=== PATIENT | female | born 1935 | race Caucasian/White ===

== ENCOUNTER → 2017-07-24 15:27 | Outpatient (CLI) | payer MEDICARE, SELFPAY ==
[2017-07-24 16:34] LABS: Absolute Lymphocyte Count 1.34 X10^3/ul (0.83-4.51); Absolute Neutrophil Count 3.1 X10^3/uL (2.0-7.7); Basophil# 0.01 X10^3/uL; Basophil% 0.2 % (0-1); Hematocrit 37.3 % (37-47); Hemoglobin 12.5 g/dl (12.0-15.0); Lymphocyte # 1.34 X10^3/ul (4.0); Lymphocyte % 27.2 % (19-41); Mean Corp Hgb Conc 33.5 g/gl (32-36); Mean Corpuscular Hgb 33.9 pg (27.0-32.0); Mean Corpuscular Volume 101.1 fL (81-99); Mean Platelet Vol. 10.7 fl (6.2-12.0); Monocyte% 8.1 % (0-10); Neutrophil # 3.08 X10^3/uL (2.7-7.7); Neutrophil % 62.5 % (47-70); Platelet Count 263 K/mm3 (150-450); RBC Distribution Width CV 14.2 % (11.6-14.6); RBC Distribution Width SD 51.2 fl (35.1-43.9); Red Blood Count 3.69 M/mm3 (4.2-5.4); White Blood Count 4.9 K/mm3 (4.4-11.0)
[2017-07-24 16:36] LABS: ALB/GLOB Ratio 1.3 RATIO (0.9-2.4); AST(SGOT) 23 U/L (15-37); Alanine Aminotransfer ALT/SGPT 24 U/L (13-56); Albumin, Serum 3.6 g/dL (3.2-5.0); Alkaline Phosphatase 80 U/L (45-117); Anion Gap 7 (5-15); BUN 22 mg/dL (7-18); BUN/Creat Ratio 24.2 RATIO (10-20); Calcium,Total 8.7 mg/dL (8.5-10.1); Chloride 108 mmol/L (98-107); Creatinine, Serum 0.91 mg/dL (0.55-1.02); EST Glomerular Filtration Rate 63 mL/min (>60); Est Glom Filt Rate - Afr Amer 76 mL/min (>60); Globulin 2.8 g/dL (2.2-4.2); Glucose 92 mg/dL (74-106); Potassium 4.1 mmol/L (3.5-5.1); Protein, Total 6.4 g/dL (6.4-8.2); Sodium Level 143 mmol/L (136-145)
[2017-07-24 16:41] LABS: POSITIVE COUNT NO; POSITIVE DIFFERENTIAL NO; POSITIVE MORPHOLOGY NO
== END ==
PROVIDERS: Family Provider Internal Medicine; PCP Internal Medicine; Visit Provider Internal Medicine Rheumatology
DX: M06.4 Inflammatory polyarthropathy (principal); M35.00 Sjogren syndrome, unspecified; M18.0 Bilateral primary osteoarthritis of first carpometacarpal joints; M16.0 Bilateral primary osteoarthritis of hip; Z79.899 Other long term (current) drug therapy
CPT/HCPCS: 36415; 80053; 85025

== ENCOUNTER → 2017-09-06 11:04 | Outpatient (CLI) | payer MEDICARE, SELFPAY ==
[2017-09-06 13:02] LABS: ALB/GLOB Ratio 1.3 RATIO (0.9-2.4); AST(SGOT) 26 U/L (15-37); Alanine Aminotransfer ALT/SGPT 25 U/L (13-56); Albumin, Serum 3.7 g/dL (3.2-5.0); Alkaline Phosphatase 73 U/L (45-117); Anion Gap 7 (5-15); BUN 22 mg/dL (7-18); BUN/Creat Ratio 25.3 RATIO (10-20); Calcium,Total 8.5 mg/dL (8.5-10.1); Chloride 107 mmol/L (98-107); Creatinine, Serum 0.87 mg/dL (0.55-1.02); EST Glomerular Filtration Rate 66 mL/min (>60); Est Glom Filt Rate - Afr Amer 80 mL/min (>60); Globulin 2.8 g/dL (2.2-4.2); Glucose 80 mg/dL (74-106); Protein, Total 6.5 g/dL (6.4-8.2); Sodium Level 141 mmol/L (136-145); Thyroid Stim Hormone (TSH) 2.94 uIU/mL (0.358-3.74)
== END ==
PROVIDERS: Family Provider Internal Medicine; PCP Internal Medicine; Visit Provider Internal Medicine Endocrinology, Diabetes & Metabolism
DX: E03.8 Other specified hypothyroidism (principal)
CPT/HCPCS: 36415; 80053; 84443

== ENCOUNTER → 2017-10-16 10:52 | Outpatient (CLI) | payer MEDICARE, SELFPAY ==
--- NOTE | 2017-10-16 10:52 | DT_ITS ---
This patient was seen during an EMR downtime October 15, 2017 - October 22, 2017. This patient may have a combination of paper and electronic documentation or all paper documentation. All documentation is viewable within the e-chart portion of [place] for each patient visit.
[2017-10-22 17:26] LABS: ALB/GLOB Ratio 1.2 RATIO (0.9-2.4); AST(SGOT) 27 U/L (15-37); Alanine Aminotransfer ALT/SGPT 21 U/L (13-56); Albumin, Serum 3.6 g/dL (3.2-5.0); Alkaline Phosphatase 80 U/L (45-117); BUN 20 mg/dL (7-18); Calcium,Total 8.9 mg/dL (8.5-10.1); Chloride 108 mmol/L (98-107); Creatinine, Serum 0.91 mg/dL (0.55-1.02); EST Glomerular Filtration Rate 63 mL/min (>60); Est Glom Filt Rate - Afr Amer 76 mL/min (>60); Glucose 83 mg/dL (74-106); Potassium 4.4 mmol/L (3.5-5.1); Protein, Total 6.6 g/dL (6.4-8.2); Sodium Level 140 mmol/L (136-145)
[2017-10-22 17:27] LABS: Anion Gap 4 (5-15)
[2017-10-22 17:33] LABS: Hematocrit 37.1 % (37-47); Hemoglobin 12.4 g/dl (12.0-15.0); Mean Corp Hgb Conc 33.4 g/gl (32-36); Mean Corpuscular Hgb 34.1 pg (27.0-32.0); Mean Corpuscular Volume 101.9 fL (81-99); RBC Distribution Width CV 13.7 % (11.6-14.6); Red Blood Count 3.64 M/mm3 (4.2-5.4); White Blood Count 4.9 K/mm3 (4.4-11.0)
[2017-10-22 17:34] LABS: Absolute Lymphocyte Count 1.27 X10^3/ul (0.83-4.51); Basophil# 0.02 X10^3/uL; Basophil% 0.4 % (0-1); Eosinophil# 0.16 X10^3/uL; Eosinophils% 3.2 % (0-5); Lymphocyte # 1.27 X10^3/ul (4.0); Lymphocyte % 25.7 % (19-41); Mean Platelet Vol. 10.8 fl (6.2-12.0); Monocyte# 0.45 X10^3/uL; Monocyte% 9.1 % (0-10); Neutrophil # 3.04 X10^3/uL (2.7-7.7); Neutrophil % 61.6 % (47-70); POSITIVE COUNT NO; POSITIVE DIFFERENTIAL NO; POSITIVE MORPHOLOGY NO; Platelet Count 271 K/mm3 (150-450); RBC Distribution Width SD 48.9 fl (35.1-43.9)
== END ==
PROVIDERS: Family Provider Internal Medicine; PCP Internal Medicine; Visit Provider Internal Medicine Rheumatology
DX: M06.4 Inflammatory polyarthropathy (principal); M35.00 Sjogren syndrome, unspecified; M18.0 Bilateral primary osteoarthritis of first carpometacarpal joints; M16.0 Bilateral primary osteoarthritis of hip; L30.9 Dermatitis, unspecified; M81.0 Age-related osteoporosis without current pathological fracture; H35.30 Unspecified macular degeneration; I10 Essential (primary) hypertension; K57.90 Diverticulosis of intestine, part unspecified, without perforation or abscess without bleeding; I87.2 Venous insufficiency (chronic) (peripheral); Z79.899 Other long term (current) drug therapy
CPT/HCPCS: 36415; 80053; 85025

== ENCOUNTER → 2017-12-10 10:37 | Outpatient (CLI) | payer MEDICARE, SELFPAY ==
[2017-12-10 11:36] LABS: Vitamin B12 527 pg/mL (211-911)
== END ==
PROVIDERS: Family Provider Internal Medicine; PCP Internal Medicine; Visit Provider Internal Medicine
DX: R71.8 Other abnormality of red blood cells (principal)
CPT/HCPCS: 36415; 82607

== ENCOUNTER → 2018-01-12 10:33 | Outpatient (CLI) | payer MEDICARE, SELFPAY ==
[2018-01-12 11:22] LABS: Absolute Lymphocyte Count 1.32 X10^3/ul (0.83-4.51); Absolute Neutrophil Count 3.2 X10^3/uL (2.0-7.7); Basophil# 0.02 X10^3/uL; Basophil% 0.4 % (0-1); Eosinophil# 0.12 X10^3/uL; Eosinophils% 2.4 % (0-5); Hematocrit 34.2 % (37-47); Hemoglobin 11.8 g/dl (12.0-15.0); Lymphocyte # 1.32 X10^3/ul (4.0); Lymphocyte % 26.1 % (19-41); Mean Corp Hgb Conc 34.5 g/gl (32-36); Mean Corpuscular Hgb 34.7 pg (27.0-32.0); Mean Corpuscular Volume 100.6 fL (81-99); Mean Platelet Vol. 10.5 fl (6.2-12.0); Monocyte# 0.35 X10^3/uL; Monocyte% 6.9 % (0-10); Neutrophil # 3.24 X10^3/uL (2.7-7.7); Platelet Count 231 K/mm3 (150-450); RBC Distribution Width CV 13.6 % (11.6-14.6); RBC Distribution Width SD 48.3 fl (35.1-43.9); White Blood Count 5.1 K/mm3 (4.4-11.0)
[2018-01-12 11:23] LABS: POSITIVE COUNT NO; POSITIVE DIFFERENTIAL NO; POSITIVE MORPHOLOGY NO
[2018-01-12 11:47] LABS: ALB/GLOB Ratio 1.2 RATIO (0.9-2.4); AST(SGOT) 29 U/L (15-37); Alanine Aminotransfer ALT/SGPT 27 U/L (13-56); Albumin, Serum 3.4 g/dL (3.2-5.0); Alkaline Phosphatase 71 U/L (45-117); Anion Gap 7 (5-15); BUN 25 mg/dL (7-18); BUN/Creat Ratio 27.4 RATIO (10-20); Calcium,Total 8.6 mg/dL (8.5-10.1); Chloride 107 mmol/L (98-107); Creatinine, Serum 0.91 mg/dL (0.55-1.02); EST Glomerular Filtration Rate 62 mL/min (>60); Est Glom Filt Rate - Afr Amer 76 mL/min (>60); Globulin 2.8 g/dL (2.2-4.2); Glucose 90 mg/dL (74-106); Potassium 4.1 mmol/L (3.5-5.1); Protein, Total 6.2 g/dL (6.4-8.2); Sodium Level 142 mmol/L (136-145)
== END ==
PROVIDERS: Family Provider Internal Medicine; PCP Internal Medicine; Visit Provider Internal Medicine Rheumatology
DX: M06.4 Inflammatory polyarthropathy (principal); M35.00 Sjogren syndrome, unspecified; M18.0 Bilateral primary osteoarthritis of first carpometacarpal joints; M16.0 Bilateral primary osteoarthritis of hip; Z79.899 Other long term (current) drug therapy
CPT/HCPCS: 36415; 80053; 85025

== ENCOUNTER → 2018-03-22 10:30 | Outpatient (CLI) | payer MEDICARE, SELFPAY ==
[2018-03-22 11:34] LABS: Vitamin D,25 Hydroxy 42.5 ng/mL (29.95-100.01)
[2018-03-22 11:38] LABS: ALB/GLOB Ratio 1.2 RATIO (0.9-2.4); AST(SGOT) 37 U/L (15-37); Alanine Aminotransfer ALT/SGPT 42 U/L (13-56); Albumin, Serum 3.7 g/dL (3.2-5.0); Alkaline Phosphatase 71 U/L (45-117); Anion Gap 4 (5-15); BUN 22 mg/dL (7-18); BUN/Creat Ratio 24.6 RATIO (10-20); Calcium,Total 8.8 mg/dL (8.5-10.1); Chloride 106 mmol/L (98-107); EST Glomerular Filtration Rate 64 mL/min (>60); Est Glom Filt Rate - Afr Amer 77 mL/min (>60); Globulin 3.2 g/dL (2.2-4.2); Glucose 80 mg/dL (74-106); Potassium 4.4 mmol/L (3.5-5.1); Protein, Total 6.9 g/dL (6.4-8.2); Sodium Level 139 mmol/L (136-145); Thyroid Stim Hormone (TSH) 3.88 uIU/mL (0.358-3.74)
== END ==
PROVIDERS: Family Provider Internal Medicine; PCP Internal Medicine; Referring Provider Internal Medicine Endocrinology, Diabetes & Metabolism; Visit Provider Internal Medicine Endocrinology, Diabetes & Metabolism
DX: E03.8 Other specified hypothyroidism (principal); E55.9 Vitamin D deficiency, unspecified
CPT/HCPCS: 36415; 80053; 82306; 84443

== ENCOUNTER → 2018-04-11 15:03 | Outpatient (CLI) | payer MEDICARE, SELFPAY ==
--- OUTSIDE RECORDS SUMMARY | 2018-06-06 20:44 | XMS RPT_ITS ---
:1935 Author Organization [facility] Support Name Relationship Address Phone KEVEN VELAZQUEZ Unavailable [address] + [place] [id number] R Unavailable Unavailable Unavailable WALKER, JOSELYN Unavailable [address] + [place] [address] KEVEN VELAZQUEZ Unavailable [address] + [place] [address] R Unavailable Unavailable Unavailable WALKER, JOSELYN Unavailable [address] + [place] [address] KEVEN VELAZQUEZ Unavailable [address] + [place] [address] R Unavailable Unavailable Unavailable WALKER, JOSELYN Unavailable [address] + [place] [address] KEVEN VELAZQUEZ Unavailable [address] + [place] [address] R Unavailable Unavailable Unavailable WALKER, JOSELYN Unavailable [address] + [place] [address] KEVEN VELAZQUEZ Unavailable [address] + [place] [address] R Unavailable Unavailable Unavailable WALKER, JOSELYN Unavailable [address] + [place] [address] KEVEN VELAZQUEZ Unavailable [address] + [place] [address] R Unavailable Unavailable Unavailable WALKER, JOSELYN Unavailable [address] + [place] [address] KEVEN VELAZQUEZ Unavailable [address] + [place] [address] R Unavailable Unavailable Unavailable WALKER, JOSELYN Unavailable [address] + [place] [id number] KEVEN VELAZQUEZ Unavailable [address] + [place] [address] R Unavailable Unavailable Unavailable WALKER, JOSELYN Unavailable [address] + [place] [address] KEVEN VELAZQUEZ Unavailable [address] + [place] [address] R Unavailable Unavailable Unavailable WALKER, JOSELYN Unavailable [address] + [place] [address] Care Team Providers Name Role Phone GANTA, NINA Attending Unavailable GANTA, NINA Referring Unavailable GANTA, NINA Attending Unavailable GANTA, NINA Referring Unavailable Ganta, Nina Attending Unavailable Ganta, Nina Primary Care Unavailable Vellanki, Ashleigh Attending Unavailable Ganta, Nina Primary Care Unavailable Korableva, Selam Attending Unavailable Korableva, Selam Referring Unavailable Ganta, Nina Primary Care Unavailable Vellanki, Ashleigh Attending Unavailable Vellanki, Ashleigh Referring Unavailable Ganta, Nina Primary Care Unavailable Ganta, Nina Attending Unavailable Ganta, Nina Referring Unavailable Ganta, Nina Primary Care Unavailable Vellanki, Ashleigh Attending Unavailable Vellanki, Ashleigh Referring Unavailable Ganta, Nina Primary Care Unavailable Korableva, Selam Attending Unavailable Korableva, Selam Referring Unavailable Ganta, Nina Primary Care Unavailable Korableva, Selam Attending Unavailable Korableva, Selam Referring Unavailable Ganta, Nina Primary Care Unavailable Vellanki, Ashleigh Attending Unavailable Vellanki, Ashleigh Referring Unavailable Ganta, Nina Primary Care Unavailable PROBLEMS PROBLEMS DATE TYPE CONDITION / CODE ATTENDING STATUS SOURCE 04/11/2018 Unknown E03.8 - Other Korableva, Active [facility] specified [facility] hypothyroidism / Hospital E03.8(ICD-10) Repository 03/22/2018 Unknown E55.9 - Vitamin D Korableva, Active [facility] deficiency, [facility] unspecified / Hospital E55.9(ICD-10) Repository 01/12/2018 Unknown M06.4 - Inflammatory Vellanki, 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 / Community M06.4(ICD-10) Hospital Repository 01/12/2018 Unknown Z79.899 - Other long Vellanjarod, Ashleigh Active [place] term (current) drug Community therapy / Hospital Z79.899(ICD-10) Repository 12/10/2017 Unknown R71.8 - Other Ganta, Nina Active [place] abnormality of red Community blood cells / Hospital R71.8(ICD-10) Repository 12/10/2017 Active Unknown / [facility] [place] Repository PROCEDURES PROCEDURES No Procedure Records FoundRESULTS RESULTS CBC W/DIFF, AUTOMATED Collected: 04/16/2018 Status: F Source: [place] 11:06 AM [facility] REPOSITORY TYPE CODE TESTS RESULT OUT OF RANGE REFERENCE UNITS LAB L100.1000 4.4-11.0 K/mm3 Normal WBC 5.2 LAB L100.1200 4.2-5.4 M/mm3 Low RBC 3.83 LAB L100.1300 12.0-15.0 g/dl Normal HGB 12.7 LAB L100.1400 37-47 % Normal HCT 38.6 LAB L100.1500 81-99 fL High MCV 100.8 LAB L100.1600 27.0-32.0 pg High MCH 33.2 LAB L100.1700 32-36 g/gl Normal MCHC 32.9 LAB L100.1810 11.6-14.6 % Normal RDW CV 14.2 LAB L100.1820 35.1-43.9 fl High RDW SD 51.3 LAB L100.1900 150-450 K/mm3 Normal PLT 279 LAB L100.2000 6.2-12.0 fl Normal MPV 10.4 LAB L100.2100 47-70 % Normal NEUT% 67.8 LAB L100.2200 19-41 % Normal LY% 21.8 LAB L100.2300 0-10 % Normal MONO% 8.7 LAB L100.2400 0-5 % Normal EO% 1.3 LAB L100.2500 0-1 % Normal BASO% 0.2 LAB L100.2550 0.0-0.9 % Normal IM GRAN % 0.200 Result Comment: IG% - Immature Granulocytes (promyelocytes, myelocytes and metamyelocytes) > 1% indicates that a LEFT SHIFT is Present. LAB L100.2620 2.0-7.7 X10 3/uL Normal Absolute Neut 3.5 LAB L100.2720 0.83-4.51 X10 3/ul Normal Absolute Lymph 1.13 Performed By: #### L100.0100 #### [facility] [address] [place], [address] THYROID STIM HORMONE Collected: 04/11/2018 Status: F Source: [place] (TSH) 3:11 PM [facility] REPOSITORY TYPE CODE TESTS RESULT OUT OF RANGE REFERENCE UNITS LAB L501.9520 0.358-3.74 uIU/mL Normal TSH 2.00 Performed By: #### L501.9520 #### [facility] [address] [facility] [place], [address] VITAMIN D,25 HYDROXY Collected: 03/22/2018 Status: F Source: [place] 10:34 AM [facility] REPOSITORY TYPE CODE TESTS RESULT OUT OF RANGE REFERENCE UNITS LAB L506.1000 29.95-100.01 ng/mL Normal Vitamin D 42.5 25-OH Result Comment: Vitamin D 25(OH) Status Range Deficiency <20 ng/mL (50nmol/L) Insuffciency 20 - 30 ng/mL (50 - 75 nmol/L) Sufficiency 30 - 100 ng/mL (75 - 250 nmol/L) Toxicity >100 ng/mL (>250 nmol/L) Performed By: #### L506.1000 #### [facility] [facility] [place], [address] COMPREHENSIVE METABOLIC Collected: 03/22/2018 Status: F Source: [place] PROFIL 10:34 AM [facility] REPOSITORY TYPE CODE TESTS RESULT OUT OF RANGE REFERENCE UNITS LAB L501.0100 74-106 mg/dL Normal GLU 80 Result Comment: Please note revised GLUCOSE reference range effective 2017. LAB L501.1000 7-18 mg/dL High BUN 22 LAB L501.1100 0.55-1.02 mg/dL Normal CREAT,SERUM 0.90 Result Comment: The validity of the calculated GFR AND GFRAA in patients over 70 years has not been determined. Clinical correlation is essential. LAB L501.1110 >60 mL/min Normal EST GFR 64 Result Comment: Non- GFR Calc LAB L501.1115 >60 mL/min Normal EST GFR - AA 77 Result Comment: GFR Calc LAB L501.1300 10-20 RATIO High BUN/CRE 24.6 LAB L501.1500 6.4-8.2 g/dL T Normal PROT 6.9 LAB L501.1800 3.2-5.0 g/dL Normal ALB 3.7 LAB L501.1950 2.2-4.2 g/dL Normal GLOB 3.2 LAB L501.2000 0.9-2.4 RATIO Normal A/G 1.2 LAB L501.2200 8.5-10.1 mg/dL CA Normal 8.8 LAB L501.4100 15-37 U/L Normal AST 37 LAB L501.4305 45-117 U/L Normal ALK P 71 LAB L501.4405 13-56 U/L Normal ALT 42 LAB L501.4600 0.20-1.00 mg/dL T Normal BILI 0.50 LAB L501.5300 136-145 mmol/L NA Normal 139 LAB L501.5600 3.5-5.1 mmol/L K Normal 4.4 LAB L501.5900 98-107 mmol/L CL Normal 106 LAB L501.6100 21.0-32.0 mmol/L Normal CO2 29.0 LAB L501.6200 5-15 Low GAP 4 Performed By: #### L500.4050, L501.9520 #### [facility] [address] [place], [place], [id number] THYROID STIM HORMONE Collected: 03/22/2018 Status: F Source: [place] (TSH) 10:34 AM [facility] REPOSITORY TYPE CODE TESTS RESULT OUT OF RANGE REFERENCE UNITS LAB L501.9520 0.358-3.74 uIU/mL High TSH 3.88 Performed By: #### L500.4050, L501.9520 #### [facility] [address] [place], [address] CBC W/DIFF, AUTOMATED Collected: 01/12/2018 Status: F Source: [place] 10:38 AM [facility] REPOSITORY TYPE CODE TESTS RESULT OUT OF RANGE REFERENCE UNITS LAB L100.1000 4.4-11.0 K/mm3 Normal WBC 5.1 LAB L100.1200 4.2-5.4 M/mm3 Low RBC 3.40 LAB L100.1300 12.0-15.0 g/dl Low HGB 11.8 LAB L100.1400 37-47 % Low HCT 34.2 LAB L100.1500 81-99 fL High MCV 100.6 LAB L100.1600 27.0-32.0 pg High MCH 34.7 LAB L100.1700 32-36 g/gl Normal MCHC 34.5 LAB L100.1810 11.6-14.6 % Normal RDW CV 13.6 LAB L100.1820 35.1-43.9 fl High RDW SD 48.3 LAB L100.1900 150-450 K/mm3 Normal PLT 231 LAB L100.2000 6.2-12.0 fl Normal MPV 10.5 LAB L100.2100 47-70 % Normal NEUT% 64.0 LAB L100.2200 19-41 % Normal LY% 26.1 LAB L100.2300 0-10 % Normal MONO% 6.9 LAB L100.2400 0-5 % Normal EO% 2.4 LAB L100.2500 0-1 % Normal BASO% 0.4 LAB L100.2550 0.0-0.9 % Normal IM GRAN % 0.200 Result Comment: IG% - Immature Granulocytes (promyelocytes, myelocytes and metamyelocytes) > 1% indicates that a LEFT SHIFT is Present. LAB L100.2620 2.0-7.7 X10 3/uL Normal Absolute Neut 3.2 LAB L100.2720 0.83-4.51 X10 3/ul Normal Absolute Lymph 1.32 Performed By: #### L100.0100 #### [facility] [address] [facility] [place], [place], [address] COMPREHENSIVE METABOLIC Collected: 01/12/2018 Status: F Source: [facility] 10:38 AM [facility] REPOSITORY TYPE CODE TESTS RESULT OUT OF RANGE REFERENCE UNITS LAB L501.0100 74-106 mg/dL Normal GLU 90 Result Comment: Please note revised GLUCOSE reference range effective 2017. LAB L501.1000 7-18 mg/dL High BUN 25 LAB L501.1100 0.55-1.02 mg/dL Normal CREAT,SERUM 0.91 Result Comment: The validity of the calculated GFR AND GFRAA in patients over 70 years has not been determined. Clinical correlation is essential. LAB L501.1110 >60 mL/min Normal EST GFR 62 Result Comment: Non- GFR Calc LAB L501.1115 >60 mL/min Normal EST GFR - AA 76 Result Comment: GFR Calc LAB L501.1300 10-20 RATIO High BUN/CRE 27.4 LAB L501.1500 6.4-8.2 g/dL Low T PROT 6.2 LAB L501.1800 3.2-5.0 g/dL Normal ALB 3.4 LAB L501.1950 2.2-4.2 g/dL Normal GLOB 2.8 LAB L501.2000 0.9-2.4 RATIO Normal A/G 1.2 LAB L501.2200 8.5-10.1 mg/dL CA Normal 8.6 LAB L501.4100 15-37 U/L Normal AST 29 LAB L501.4305 45-117 U/L Normal ALK P 71 LAB L501.4405 13-56 U/L Normal ALT 27 LAB L501.4600 0.20-1.00 mg/dL T Normal BILI 0.30 LAB L501.5300 136-145 mmol/L NA Normal 142 LAB L501.5600 3.5-5.1 mmol/L K Normal 4.1 LAB L501.5900 98-107 mmol/L CL Normal 107 LAB L501.6100 21.0-32.0 mmol/L Normal CO2 28.0 LAB L501.6200 5-15 Normal GAP 7 Performed By: #### L500.4050 #### [facility] [address] [place], [address] VITAMIN B12 Collected: 12/10/2017 Status: F Source: [place] 10:42 AM [facility] REPOSITORY TYPE CODE TESTS RESULT OUT OF RANGE REFERENCE UNITS LAB L503.0105 211-911 pg/mL Normal Vitamin B12 527 Performed By: #### L503.0105 #### [facility] [address] [place], [address] PROGRESS Observed: 12/10/2017 Status: COMPLETED Source: [place] 10:01 AM [facility] REPOSITORY HNO ID: [id number] Author: Nina Turner Service: (none) Author Type: Physician Type: Progress Notes Filed: 12/10/2017 5:14 PM Note Text: Reason for Visit Patient presents with: F/U 6 months Maria Teresa Velazquez is a 82 year old female who presents here today for Above Complaints.. Health Maintenance DTAP,TDAP,TD(1 - Tdap) DIABETES SCREEN HPI Patient has a lesion on the right ring finger seems Like nodule that is red and tender. 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 Taking methotrexate and it is helping the stiffness of the hands. Usually stiffness is not more than half an hour. ? ?Essential hypertension ? BP is well controlled on current regimen of medicines which is tolerated well. No significant side effects ? ? Hypothyroidism Has hypothyroidism on the current medication she is doing well. Currently no signs of hypothyoidism. No constipation, depression , low energy or dryness of skin. ? ? Osteopenia Dr Hurst monitors her bone density. No problem-specific Assessment AND Plan notes found for this encounter. PAST MEDICAL HISTORY Diagnosis Date - Adhesive capsulitis of shoulder - Cervical spondylosis without myelopathy 04/17/2012 - Diverticulosis of colon (without mention of hemorrhage) - Dry skin 03/21/2010 - Generalized osteoarthrosis, unspecified site 08/21/2005 - Hair loss 03/21/2010 - Internal hemorrhoids without mention of complication - Leg swelling - Lower leg edema - Macular degeneration (senile) of retina, unspecified 08/21/2005 - Myalgia and myositis, unspecified - Open wound of scalp, without mention of complication - Osteopenia 02/03/2009 BMD with no significant change from previous. Vitamin D 02/19 - 42.4 - Sciatica 05/27/2007 - Unspecified essential hypertension PAST SURGICAL HISTORY Procedure Laterality Date - COLONOSCOP W/ OR W/O BRSH SPEC 11/21/05 - REPAIR ROTATOR CUFF,ACUTE 2004 right rotator cuff repair FAMILY HISTORY Problem Relation Age of Onset - Breast Cancer Sister - Alzheimer's Disease Mother - Aneurysm Father Cerebral, hs HTN - Lipids, Osteoporosis [Other] [OTHER] Sister - None Daughter - None Son - melanoma [Other] [OTHER] Sister Social History Substance Use Topics - Smoking status: Never Smoker - Smokeless tobacco: Never Used - Alcohol use Yes Comment: 2 TO 3 DRINKS WEEK Past medical history, appointments, medications, allergies reviewed. Pertinent Lab/Diagnostic Studies are reviewed and discussed today Current Outpatient Prescriptions: - amLODIPine (NORVASC) 2.5 mg tablet - irbesartan (AVAPRO) 150 mg tablet - citalopram (CELEXA) 20 mg tablet - folic acid 1 mg tablet - methotrexate 2.5 mg tablet - Cholecalciferol, Vitamin D3, (VITAMIN D-3) 2,000 unit cap - vit A,C,P-Gmhm-Gdgxnb (OCUVITE PRESERVISION) 7,160-113-100 igoo-sa-sdpe tab - Ibandronate (BONIVA) 150 mg tablet - levothyroxine (SYNTHROID) 50 mcg tablet - calcium carbonate 600 mg-cholecalciferol 200 units (CALCIUM 600 + D,3,) 600 mg(1,500mg) -200 unit ORAL Tab - [place]-3 Fatty Acids-Vitamin E (FISH OIL) 1,000 mg ORAL Cap - ALEVE 220 MG TAB Review of Systems CONSTITUTIONAL: No fevers, chills night sweats, unintended weight loss CARDIOVASCULAR: No chest pain, dyspnea, palpitations, orthopnea, PND, ankle edema. PULM: No dyspnea, unexplained cough. GI: No dysphagia/odynophagia, problematic reflux, constipation, diarrhea, changes in stool habits, hematochezia, melena. : No new urinary complaints, including dysuria, gross hematuria or pyuria. NEURO: No new balance problems, peripheral weakness/paresthesias or numbness of concern. Physical Exam BP 126/78 Pulse 61 Resp 14 Wt 53.1 kg (117 lb) SpO2 100% BMI 21.75 kg/m? General appearance: Well appearing, alert, in no acute distress, well nourished. Skin: Skin color, texture, turgor normal, no suspicious rashes or lesions Head: Normocephalic, no masses, lesions, tenderness or abnormalities Eyes: Anicteric sclera. Pupils are equally round and reactive to light. Extraocular movements are intact. Lungs: Lungs clear to auscultation. No wheezing, rhonchi, rales Heart: RRR without murmur, gallop, or rubs. Extremities: No deformities, edema, skin discoloration, clubbing or cyanosis. Good capillary refill. ASSESSMENT/PLAN: 1. Essential hypertension - ICD9: 401.9, ICD10: I10 (primary diagnosis) - good control - Recommended regular aerobic exercise. - Recommend home blood pressure monitoring, to bring results in on next visit - Goal of BP <130/80 2. Acquired hypothyroidism - ICD9: 244.9, ICD10: E03.9 - Instructed patient on importance of taking on an empty stomach either first thing in the morning or at bedtime. 3. Osteopenia, unspecified location - ICD9: 733.90, ICD10: M85.80 - Reviewed the need for Calcium and Vitamin D supplements and weight bearing exercise as tolerated 4. Elevated MCV - ICD9: 790.09, ICD10: R71.8 - VITAMIN B12 BLOOD 5. Finger infection - ICD9: 686.9, ICD10: L08.9 - Begin treatment with. - SULFAMETHOXAZOLE 400 MG-TRIMETHOPRIM 80 MG TABLET NINA TURNER MD CNOV Observed: 12/10/2017 Status: COMPLETED Source: [place] 9:40 AM [facility] REPOSITORY Office Visit (INTMWS) MARIA TERESA VELAZQUEZ ([id number]) 1935 F Date Time Provider Department 12/10/17 9:40 AM NINA TURNER INTPatWS During your visit today, we recorded the following information about you: Pulse Respiration Blood pressure Weight 61/minute 14/minute 126/78 53.1 kg NINA TURNER MD 12/10/2017 5:14 PM Signed Reason for Visit Patient presents with: F/U 6 months Maria Teresa Velazquez is a 82 year old female who presents here today for Above Complaints.. Health Maintenance DTAP,TDAP,TD(1 - Tdap) DIABETES SCREEN HPI Patient has a lesion on the right ring finger seems Like nodule that is red and tender. 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 Taking methotrexate and it is helping the stiffness of the hands. Usually stiffness is not more than half an hour. ? ?Essential hypertension ? BP is well controlled on current regimen of medicines which is tolerated well. No significant side effects ? ? Hypothyroidism Has hypothyroidism on the current medication she is doing well. Currently no signs of hypothyoidism. No constipation, depression , low energy or dryness of skin. ? ? Osteopenia Dr Hurst monitors her bone density. No problem-specific Assessment AND Plan notes found for this encounter. PAST MEDICAL HISTORY Diagnosis Date - Adhesive capsulitis of shoulder - Cervical spondylosis without myelopathy 04/17/2012 - Diverticulosis of colon (without mention of hemorrhage) - Dry skin 03/21/2010 - Generalized osteoarthrosis, unspecified site 08/21/2005 - Hair loss 03/21/2010 - Internal hemorrhoids without mention of complication - Leg swelling - Lower leg edema - Macular degeneration (senile) of retina, unspecified 08/21/2005 - Myalgia and myositis, unspecified - Open wound of scalp, without mention of complication - Osteopenia 02/03/2009 BMD with no significant change from previous. Vitamin D 02/19 - 42.4 - Sciatica 05/27/2007 - Unspecified essential hypertension PAST SURGICAL HISTORY Procedure Laterality Date - COLONOSCOP W/ OR W/O BRSH SPEC 11/21/05 - REPAIR ROTATOR CUFF,ACUTE 2004 right rotator cuff repair FAMILY HISTORY Problem Relation Age of Onset - Breast Cancer Sister - Alzheimer's Disease Mother - Aneurysm Father Cerebral, hs HTN - Lipids, Osteoporosis [Other] [OTHER] Sister - None Daughter - None Son - melanoma [Other] [OTHER] Sister Social History Substance Use Topics - Smoking status: Never Smoker - Smokeless tobacco: Never Used - Alcohol use Yes Comment: 2 TO 3 DRINKS WEEK Past medical history, appointments, medications, allergies reviewed. Pertinent Lab/Diagnostic Studies are reviewed and discussed today Current Outpatient Prescriptions: - amLODIPine (NORVASC) 2.5 mg tablet - irbesartan (AVAPRO) 150 mg tablet - citalopram (CELEXA) 20 mg tablet - folic acid 1 mg tablet - methotrexate 2.5 mg tablet - Cholecalciferol, Vitamin D3, (VITAMIN D-3) 2,000 unit cap - vit A,C,Q-Ckkj-Frwdyy (OCUVITE PRESERVISION) 7,160-113-100 daad-tv-aftg tab - Ibandronate (BONIVA) 150 mg tablet - levothyroxine (SYNTHROID) 50 mcg tablet - calcium carbonate 600 mg-cholecalciferol 200 units (CALCIUM 600 + D,3,) 600 mg(1,500mg) -200 unit ORAL Tab - [place]-3 Fatty Acids-Vitamin E (FISH OIL) 1,000 mg ORAL Cap - ALEVE 220 MG TAB Review of Systems CONSTITUTIONAL: No fevers, chills night sweats, unintended weight loss CARDIOVASCULAR: No chest pain, dyspnea, palpitations, orthopnea, PND, ankle edema. PULM: No dyspnea, unexplained cough. GI: No dysphagia/odynophagia, problematic reflux, constipation, diarrhea, changes in stool habits, hematochezia, melena. : No new urinary complaints, including dysuria, gross hematuria or pyuria. NEURO: No new balance problems, peripheral weakness/paresthesias or numbness of concern. Physical Exam BP 126/78 Pulse 61 Resp 14 Wt 53.1 kg (117 lb) SpO2 100% BMI 21.75 kg/m? General appearance: Well appearing, alert, in no acute distress, well nourished. Skin: Skin color, texture, turgor normal, no suspicious rashes or lesions Head: Normocephalic, no masses, lesions, tenderness or abnormalities Eyes: Anicteric sclera. Pupils are equally round and reactive to light. Extraocular movements are intact. Lungs: Lungs clear to auscultation. No wheezing, rhonchi, rales Heart: RRR without murmur, gallop, or rubs. Extremities: No deformities, edema, skin discoloration, clubbing or cyanosis. Good capillary refill. ASSESSMENT/PLAN: 1. Essential hypertension - ICD9: 401.9, ICD10: I10 (primary diagnosis) - good control - Recommended regular aerobic exercise. - Recommend home blood pressure monitoring, to bring results in on next visit - Goal of BP <130/80 2. Acquired hypothyroidism - ICD9: 244.9, ICD10: E03.9 - Instructed patient on importance of taking on an empty stomach either first thing in the morning or at bedtime. 3. Osteopenia, unspecified location - ICD9: 733.90, ICD10: M85.80 - Reviewed the need for Calcium and Vitamin D supplements and weight bearing exercise as tolerated 4. Elevated MCV - ICD9: 790.09, ICD10: R71.8 - VITAMIN B12 BLOOD 5. Finger infection - ICD9: 686.9, ICD10: L08.9 - Begin treatment with. - SULFAMETHOXAZOLE 400 MG-TRIMETHOPRIM 80 MG TABLET NINA TURNER MD Referring Provider: NINA TURNER [[id number]] Allergies As of Date: 12/10/2017 Noted Allergy Reaction environmental [Other] 03/20/2005 EPHEDRINE 03/20/2005 4 - Hives POISON AKASH 03/27/2005 SUDAFED (PSEUDOEPHEDRINE HCL) 03/20/2005 4 - Hives Date Reviewed: 12/10/2017 Reviewed by: Jamie Forrester Ma - Fully Assessed Reason for Visit: F/U 6 months [1177] Primary Visit Diagnosis:Essential hypertension [I10] Other Visit Diagnoses:Acquired hypothyroidism [E03.9] Osteopenia, unspecified location [M85.80] Elevated MCV [R71.8] Finger infection [L08.9] Order(s):VITAMIN B12 BLOOD [SQB12] Order #: [id number] FUTURE sulfamethoxazole-trimethoprim (BACTRIM,SEPTRA) 400- 80 mg per tabletTake 1 tablet by mouth twice daily for 7 days.Disp: 14 tabletRfl: 0 Prescriptions as of 12/10/2017 Sig: SULFAMETHOXAZOLE 400 MG-TRIME* Take 1 tablet by mouth twice * AMLODIPINE 2.5 MG TABLET Take 1 tablet by mouth once d* IRBESARTAN 150 MG TABLET Take 1 tablet by mouth daily * CITALOPRAM 20 MG TABLET TAKE 1/2 TABLET BY MOUTH ONCE* FOLIC ACID 1 MG TABLET Take 2 mg by mouth once daily. METHOTREXATE SODIUM 2.5 MG TA* Take 2.5 tablets by mouth noreen* CHOLECALCIFEROL (VITAMIN D3) * Take 2,000 Units by mouth onc* VITAMINS A,C,H-SSYG-MNOINF 7* Take 1 tablet by mouth twice * IBANDRONATE 150 MG TABLET Take 1 tablet by mouth once e* LEVOTHYROXINE 50 MCG TABLET Take 1 tablet by mouth once d* * CALCIUM CARBONATE 600 MG (1,5* Take 1 tablet by mouth once d* * OMEGA-3 FATTY ACIDS-VITAMIN E* Take 1 capsule by mouth once * * ALEVE 220 MG TABLET As needed Problem List As Of Date 12/10/2017 Noted Resolved DERMATITIS NOS [L25.9] INVALID FOR*08/21/2005 Essential hypertension [I10] INVALID FOR* More... MACULAR DEGENERATION NOS [H35.30] INVALID FOR* More... Primary osteoarthritis involving multiple joint*INVALID FOR* More... Hypothyroidism [E03.9] INVALID FOR* More... Osteopenia [M85.80] INVALID FOR* More... Hyperlipemia [E78.5] INVALID FOR*10/27/2013 More... Bursitis of left hip [M70.72] INVALID FOR*11/18/2014 Osteoarthritis [M19.90] INVALID FOR*10/21/2012 Multinodular goiter [E04.2] INVALID FOR* More... More... Hyperlipidemia [E78.5] INVALID FOR* Depressed [F32.9] INVALID FOR* More... Right leg pain [M79.604] INVALID FOR* Lumbar radiculopathy [M54.16] INVALID FOR* Rheumatoid arthritis with positive rheumatoid f*INVALID FOR* More... Prescriptions ordered this encounter Disp Refills Start End SULFAMETHOXAZOLE 400 MG-TRIMETHOPRIM* 14 t* 0 12/10/2017 12/17/2017 Route: ORAL Sig: Take 1 tablet by mouth twice daily for 7 days. Encounter Status:Closed by NINA TURNER MD on 12/10/17 DOWNTIME REPORT Observed: 11/01/2017 Status: F Source: [place] 12:26 PM [facility] REPOSITORY [facility] Medical Records Department [address] [place] [address] Downtime Report MR#: [id number] Acct: [id number] Name: MARIA TERESA VELAZQUEZ Rep #: [id number] : 1935 82 From: [place] Roy PCP: Nina Turner MD Status: REG CLI This patient was seen during an EMR downtime October 15, 2017 - October 22, 2017. This patient may have a combination of paper and electronic documentation or all paper documentation. All documentation is viewable within the e-chart portion of [facility] for each patient visit. COMPREHENSIVE METABOLIC Collected: 10/16/2017 Status: F Source: JANNIE PROFIL 12:00 AM [facility] REPOSITORY Order Comment: RESULT(S) PREVIOUSLY REPORTED ON MANUAL REQUISITION DURING DOWNTIME. TYPE CODE TESTS RESULT OUT OF RANGE REFERENCE UNITS LAB L501.0100 74-106 mg/dL Normal GLU 83 Result Comment: Please note revised GLUCOSE reference range effective 2017. LAB L501.1000 7-18 mg/dL High BUN 20 LAB L501.1100 0.55-1.02 mg/dL Normal CREAT,SERUM 0.91 Result Comment: The validity of the calculated GFR AND GFRAA in patients over 70 years has not been determined. Clinical correlation is essential. LAB L501.1110 >60 mL/min Normal EST GFR 63 LAB L501.1115 >60 mL/min Normal EST GFR - AA 76 LAB L501.1300 10-20 RATIO High BUN/CRE 22.0 LAB L501.1500 6.4-8.2 g/dL Normal T PROT 6.6 LAB L501.1800 3.2-5.0 g/dL Normal ALB 3.6 LAB L501.1950 2.2-4.2 g/dL Normal GLOB 3.0 LAB L501.2000 0.9-2.4 RATIO Normal A/G 1.2 LAB L501.2200 8.5-10.1 mg/dL Normal CA 8.9 LAB L501.4100 15-37 U/L Normal AST 27 LAB L501.4305 45-117 U/L Normal ALK P 80 LAB L501.4405 13-56 U/L Normal ALT 21 LAB L501.4600 0.20-1.00 mg/dL Normal T BILI 0.30 LAB L501.5300 136-145 mmol/L Normal NA 140 LAB L501.5600 3.5-5.1 mmol/L Normal K 4.4 LAB L501.5900 98-107 mmol/L High CL 108 LAB L501.6100 21.0-32.0 mmol/L Normal CO2 28.0 LAB L501.6200 5-15 Low GAP 4 Performed By: #### L500.4050 #### [facility] [address] [place], [address] CBC W/DIFF, AUTOMATED Collected: 10/16/2017 Status: F Source: [place] 12:00 AM [facility] REPOSITORY Order Comment: RESULT(S) PREVIOUSLY REPORTED ON MANUAL REQUISITION DURING DOWNTIME. TYPE CODE TESTS RESULT OUT OF RANGE REFERENCE UNITS LAB L100.1000 4.4-11.0 K/mm3 Normal WBC 4.9 LAB L100.1200 4.2-5.4 M/mm3 Low RBC 3.64 LAB L100.1300 12.0-15.0 g/dl Normal HGB 12.4 LAB L100.1400 37-47 % Normal HCT 37.1 LAB L100.1500 81-99 fL High MCV 101.9 LAB L100.1600 27.0-32.0 pg High MCH 34.1 LAB L100.1700 32-36 g/gl Normal MCHC 33.4 LAB L100.1810 11.6-14.6 % Normal RDW CV 13.7 LAB L100.1820 35.1-43.9 fl High RDW SD 48.9 LAB L100.1900 150-450 K/mm3 Normal PLT 271 LAB L100.2000 6.2-12.0 fl Normal MPV 10.8 LAB L100.2100 47-70 % Normal NEUT% 61.6 LAB L100.2200 19-41 % Normal LY% 25.7 LAB L100.2300 0-10 % Normal MONO% 9.1 LAB L100.2400 0-5 % Normal EO% 3.2 LAB L100.2500 0-1 % Normal BASO% 0.4 LAB L100.2550 0.0-0.9 % Normal IM GRAN % 0.000 Result Comment: IG% - Immature Granulocytes (promyelocytes, myelocytes and metamyelocytes) > 1% indicates that a LEFT SHIFT is Present. LAB L100.2620 2.0-7.7 X10 3/uL Normal Absolute Neut 3.0 LAB L100.2720 0.83-4.51 X10 3/ul Normal Absolute Lymph 1.27 Performed By: #### L100.0100 #### [facility] [address] [place] [address]. [place], [place], [address] COMPREHENSIVE METABOLIC Collected: 09/06/2017 Status: F Source: [facility] 11:08 AM [facility] REPOSITORY TYPE CODE TESTS RESULT OUT OF RANGE REFERENCE UNITS LAB L501.0100 74-106 mg/dL Normal GLU 80 Result Comment: Please note revised GLUCOSE reference range effective 2017. LAB L501.1000 7-18 mg/dL High BUN 22 LAB L501.1100 0.55-1.02 mg/dL Normal CREAT,SERUM 0.87 Result Comment: The validity of the calculated GFR AND GFRAA in patients over 70 years has not been determined. Clinical correlation is essential. LAB L501.1110 >60 mL/min Normal EST GFR 66 Result Comment: Non- GFR Calc LAB L501.1115 >60 mL/min Normal EST GFR - AA 80 Result Comment: GFR Calc LAB L501.1300 10-20 RATIO High BUN/CRE 25.3 LAB L501.1500 6.4-8.2 g/dL T Normal PROT 6.5 LAB L501.1800 3.2-5.0 g/dL Normal ALB 3.7 LAB L501.1950 2.2-4.2 g/dL Normal GLOB 2.8 LAB L501.2000 0.9-2.4 RATIO Normal A/G 1.3 LAB L501.2200 8.5-10.1 mg/dL CA Normal 8.5 LAB L501.4100 15-37 U/L Normal AST 26 LAB L501.4305 45-117 U/L Normal ALK P 73 LAB L501.4405 13-56 U/L Normal ALT 25 LAB L501.4600 0.20-1.00 mg/dL T Normal BILI 0.40 LAB L501.5300 136-145 mmol/L NA Normal 141 LAB L501.5600 3.5-5.1 mmol/L K Normal 4.0 LAB L501.5900 98-107 mmol/L CL Normal 107 LAB L501.6100 21.0-32.0 mmol/L Normal CO2 27.0 LAB L501.6200 5-15 Normal GAP 7 Performed By: #### L500.4050, L501.9520 #### [facility] [address] [place], [place], [address] THYROID STIM HORMONE Collected: 09/06/2017 Status: F Source: JANNIE (TSH) 11:08 AM [facility] REPOSITORY TYPE CODE TESTS RESULT OUT OF RANGE REFERENCE UNITS LAB L501.9520 0.358-3.74 uIU/mL Normal TSH 2.94 Performed By: #### L500.4050, L501.9520 #### [facility] [address] [place], [place], [address] COMPREHENSIVE METABOLIC Collected: 07/24/2017 Status: F Source: JANNIE PROFIL 3:36 PM [facility] REPOSITORY TYPE CODE TESTS RESULT OUT OF RANGE REFERENCE UNITS LAB L501.0100 74-106 mg/dL Normal GLU 92 Result Comment: Please note revised GLUCOSE reference range effective 2017. LAB L501.1000 7-18 mg/dL High BUN 22 LAB L501.1100 0.55-1.02 mg/dL Normal CREAT,SERUM 0.91 Result Comment: The validity of the calculated GFR AND GFRAA in patients over 70 years has not been determined. Clinical correlation is essential. LAB L501.1110 >60 mL/min Normal EST GFR 63 Result Comment: Non- GFR Calc LAB L501.1115 >60 mL/min Normal EST GFR - AA 76 Result Comment: GFR Calc LAB L501.1300 10-20 RATIO High BUN/CRE 24.2 LAB L501.1500 6.4-8.2 g/dL T Normal PROT 6.4 LAB L501.1800 3.2-5.0 g/dL Normal ALB 3.6 LAB L501.1950 2.2-4.2 g/dL Normal GLOB 2.8 LAB L501.2000 0.9-2.4 RATIO Normal A/G 1.3 LAB L501.2200 8.5-10.1 mg/dL CA Normal 8.7 LAB L501.4100 15-37 U/L Normal AST 23 LAB L501.4305 45-117 U/L Normal ALK P 80 LAB L501.4405 13-56 U/L Normal ALT 24 Result Comment: Please note revised ALT reference range effective 2017. LAB L501.4600 0.20-1.00 mg/dL Normal T BILI 0.30 LAB L501.5300 136-145 mmol/L Normal NA 143 LAB L501.5600 3.5-5.1 mmol/L Normal K 4.1 LAB L501.5900 98-107 mmol/L High CL 108 LAB L501.6100 21.0-32.0 mmol/L Normal CO2 28.0 LAB L501.6200 5-15 Normal GAP 7 Performed By: #### L500.4050 #### [facility] [address] [place], [address] CBC W/DIFF, AUTOMATED Collected: 07/24/2017 Status: F Source: JANNIE 3:36 PM [facility] REPOSITORY TYPE CODE TESTS RESULT OUT OF RANGE REFERENCE UNITS LAB L100.1000 4.4-11.0 K/mm3 Normal WBC 4.9 LAB L100.1200 4.2-5.4 M/mm3 Low RBC 3.69 LAB L100.1300 12.0-15.0 g/dl Normal HGB 12.5 LAB L100.1400 37-47 % Normal HCT 37.3 LAB L100.1500 81-99 fL High MCV 101.1 LAB L100.1600 27.0-32.0 pg High MCH 33.9 LAB L100.1700 32-36 g/gl Normal MCHC 33.5 LAB L100.1810 11.6-14.6 % Normal RDW CV 14.2 LAB L100.1820 35.1-43.9 fl High RDW SD 51.2 LAB L100.1900 150-450 K/mm3 Normal PLT 263 LAB L100.2000 6.2-12.0 fl Normal MPV 10.7 LAB L100.2100 47-70 % Normal NEUT% 62.5 LAB L100.2200 19-41 % Normal LY% 27.2 LAB L100.2300 0-10 % Normal MONO% 8.1 LAB L100.2400 0-5 % Normal EO% 2.0 LAB L100.2500 0-1 % Normal BASO% 0.2 LAB L100.2550 0.0-0.9 % Normal IM GRAN % 0.000 Result Comment: IG% - Immature Granulocytes (promyelocytes, myelocytes and metamyelocytes) > 1% indicates that a LEFT SHIFT is Present. LAB L100.2620 2.0-7.7 X10 3/uL Normal Absolute Neut 3.1 LAB L100.2720 0.83-4.51 X10 3/ul Normal Absolute Lymph 1.34 Performed By: #### L100.0100 #### [facility] [address] [place], [place] [address]ra[place], [address] PROGRESS Observed: 06/11/2017 Status: COMPLETED Source: [place] 10:52 AM [facility] REPOSITORY HNO ID: [id number] Author: Nina Turner Service: (none) Author Type: Physician Type: Progress Notes Filed: 06/11/2017 5:32 PM Note Text: Medicare Yearly Visit Medical B eligibilty date age 66 Date of last exam none in the past years PAST MEDICAL HISTORY Diagnosis Date - Adhesive capsulitis of shoulder - Cervical spondylosis without myelopathy 04/17/2012 - Diverticulosis of colon (without mention of hemorrhage) - Dry skin 03/21/2010 - Generalized osteoarthrosis, unspecified site 08/21/2005 - Hair loss 03/21/2010 - Internal hemorrhoids without mention of complication - Leg swelling - Lower leg edema - Macular degeneration (senile) of retina, unspecified 08/21/2005 - Myalgia and myositis, unspecified - Open wound of scalp, without mention of complication - Osteopenia 02/03/2009 BMD with no significant change from previous. Vitamin D 02/19 - 42.4 - Sciatica 05/27/2007 - Unspecified essential hypertension PAST SURGICAL HISTORY Procedure Laterality Date - COLONOSCOP W/ OR W/O [facility] SPEC 11/21/05 - REPAIR ROTATOR CUFF,ACUTE 2004 right rotator cuff repair Ephedrine; Poison Akash; Sudafed [Pseudoephedrine Hcl]; Environmental [Other] Medications reviewed: Yes FAMILY HISTORY Problem Relation Age of Onset - Breast Cancer Sister - Alzheimer's Disease Mother - Aneurysm Father Cerebral, hs HTN - Lipids, Osteoporosis [Other] [OTHER] Sister - None Daughter - None Son - melanoma [Other] [OTHER] Sister SOCIAL HISTORY: Social History Marital status: Spouse name: Keven Years of education: Number of children: 2 Occupational History Occupation Employer Comment RETIRED [employer] Social History Main Topics Smoking status: Never Smoker Smokeless status: Never Used Alcohol use: Yes Comment: 2 TO 3 DRINKS WEEK Drug use: No Maria Teresa likes to exercise by going to [place]. She watches her diet for sodium, low fat and low cholesterol most of the time. List of current specialists seen: End of Live Planning discussed including patients advanced directive wishes: Yes I am willing to follow Maria Teresa's advanced directives. Depression screen She in the past two weeks denies having felt down, depressed, hopeless or with little interest or pleasure in doing things. Functional Ability/Safety Screen 1. Was the patient's timed Up and Go test unsteady or longer than 30 seconds? No 2. Does the patient need help with the phone, transportation, shopping,preparing meals, housework, laundry, medications or managing money? No 3. Does your home have rugs in the hallway, lack of grab bars in the bathroom, lack of handrails on the stairs or have poor lighting? No Hearing Evaluation: normal PHYSICAL EXAM BP 134/66 (BP Site: Left Arm, BP Position: Sitting, BP Cuff Size: Regular Adult) Pulse 60 Resp 12 Ht 156.2 cm (5' 1.5) Wt 52.2 kg (115 lb) SpO2 98% BMI 21.38 kg/m2 Alert and oriented X 3: NO Body mass index is 21.38 kg/(m2). ASSESSMENT/PLAN: 82 year old female The following prevention plan was discussed during the office visit and provided to the patient: - Glaucoma screening - Lipid panel NINA TURNER MD Reason for Visit Patient presents with: Established Patient: medicare wellness Maria Teresa Velazquez is a 82 year old female who presents here today for Above Complaints.. Health Maintenance There are no preventive care reminders to display for this patient. 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 Usually stiffness is not more than half an hour. Essential hypertension BP is well controlled on current regimen of medicines which is tolerated well. No significant side effects Hypothyroidism Has hypothyroidism on the current medication she is doing well. Currently no signs of hypothyoidism. No constipation, depression , low energy or dryness of skin. Osteopenia Dr Hurst monitors her bone density. PAST MEDICAL HISTORY Diagnosis Date - Adhesive capsulitis of shoulder - Cervical spondylosis without myelopathy 04/17/2012 - Diverticulosis of colon (without mention of hemorrhage) - Dry skin 03/21/2010 - Generalized osteoarthrosis, unspecified site 08/21/2005 - Hair loss 03/21/2010 - Internal hemorrhoids without mention of complication - Leg swelling - Lower leg edema - Macular degeneration (senile) of retina, unspecified 08/21/2005 - Myalgia and myositis, unspecified - Open wound of scalp, without mention of complication - Osteopenia 02/03/2009 BMD with no significant change from previous. Vitamin D 02/19 - 42.4 - Sciatica 05/27/2007 - Unspecified essential hypertension PAST SURGICAL HISTORY Procedure Laterality Date - COLONOSCOP W/ OR W/O [facility] SPEC 11/21/05 - REPAIR ROTATOR CUFF,ACUTE 2004 right rotator cuff repair FAMILY HISTORY Problem Relation Age of Onset - Breast Cancer Sister - Alzheimer's Disease Mother - Aneurysm Father Cerebral, hs HTN - Lipids, Osteoporosis [Other] [OTHER] Sister - None Daughter - None Son - melanoma [Other] [OTHER] Sister Social History Substance Use Topics - Smoking status: Never Smoker - Smokeless tobacco: Never Used - Alcohol use Yes Comment: 2 TO 3 DRINKS WEEK Past medical history, appointments, medications, allergies reviewed. Pertinent Lab/Diagnostic Studies are reviewed and discussed today Current Outpatient Prescriptions: - citalopram (CELEXA) 20 mg tablet - irbesartan (AVAPRO) 150 mg tablet - folic acid 1 mg tablet - methotrexate 2.5 mg tablet - Cholecalciferol, Vitamin D3, (VITAMIN D-3) 2,000 unit cap - amLODIPine (NORVASC) 2.5 mg tablet - vit A,C,V-Spzk-Urowbd (OCUVITE PRESERVISION) 7,160-113-100 xoho-do-cpnl tab - Ibandronate (BONIVA) 150 mg tablet - levothyroxine (SYNTHROID) 50 mcg tablet - calcium carbonate 600 mg-cholecalciferol 200 units (CALCIUM 600 + D,3,) 600 mg(1,500mg) -200 unit ORAL Tab - [place]-3 Fatty Acids-Vitamin E (FISH OIL) 1,000 mg ORAL Cap - ALEVE 220 MG TAB Review of Systems CONSTITUTIONAL: No fevers, chills night sweats, unintended weight loss CARDIOVASCULAR: No chest pain, dyspnea, palpitations, orthopnea, PND, ankle edema. PULM: No dyspnea, unexplained cough. GI: No dysphagia/odynophagia, problematic reflux, constipation, diarrhea, changes in stool habits, hematochezia, melena. : No new urinary complaints, including dysuria, gross hematuria or pyuria. NEURO: No new balance problems, peripheral weakness/paresthesias or numbness of concern. Physical Exam BP 134/66 (BP Site: Left Arm, BP Position: Sitting, BP Cuff Size: Regular Adult) Pulse 60 Resp 12 Ht 156.2 cm (5' 1.5) Wt 52.2 kg (115 lb) SpO2 98% BMI 21.38 kg/m2 General appearance: Well appearing, alert, in no acute distress, well nourished. Skin: Skin color, texture, turgor normal, no suspicious rashes or lesions Head: Normocephalic, no masses, lesions, tenderness or abnormalities Eyes: Anicteric sclera. Pupils are equally round and reactive to light. Extraocular movements are intact. Lungs: Lungs clear to auscultation. No wheezing, rhonchi, rales Heart: RRR without murmur, gallop, or rubs. ASSESSMENT/PLAN: 1. Medicare annual wellness visit, subsequent - ICD9: V70.0, ICD10: Z00.00 (primary diagnosis) - Encouraged monthly Breast Self Exam - Follow up for annual exam in one year. 2. Rheumatoid arthritis with positive rheumatoid factor, involving unspecified site (HCC) - ICD9: 714.0, ICD10: M05.9 Cont he methotrexate 3. Essential hypertension - ICD9: 401.9, ICD10: I10 - good control - Recommended regular aerobic exercise. - Recommend home blood pressure monitoring, to bring results in on next visit - Goal of BP <130/80 4. Acquired hypothyroidism - ICD9: 244.9, ICD10: E03.9 - Instructed patient on importance of taking on an empty stomach either first thing in the morning or at bedtime. 5. Osteopenia, unspecified location - ICD9: 733.90, ICD10: M85.80 - Reviewed the need for Calcium and Vitamin D supplements and weight bearing exercise as tolerated NINA TURNER MD CNOV Observed: 06/11/2017 Status: COMPLETED Source: [place] 9:40 AM [facility] REPOSITORY Office Visit (INTMWS) MARIA TERESA VELAZQUEZ ([id number]) 1935 F Date Time Provider Department 06/11/17 9:40 AM NINA TURNER INTPatWS During your visit today, we recorded the following information about you: Pulse Respiration Blood pressure Weight 60/minute 12/minute 134/66 52.2 kg Height 1.562 m NINA TURNER MD 06/11/2017 10:48 AM Written Taking methotrexate and it is helping the stiffness of the hands. Usually stiffness is not more than half an hour. NINA TURNER MD 06/11/2017 10:48 AM Written BP is well controlled on current regimen of medicines which is tolerated well. No significant side effects NINA TURNER MD 06/11/2017 10:48 AM Written Has hypothyroidism on the current medication she is doing well. Currently no signs of hypothyoidism. No constipation, depression , low energy or dryness of skin. NINA TURNER MD 06/11/2017 10:[address] Hurst monitors her bone density. NINA TURNER MD 06/11/2017 5:32 PM Signed Medicare Yearly Visit Medical B eligibilty date age 66 Date of last exam none in the past years PAST MEDICAL HISTORY Diagnosis Date - Adhesive capsulitis of shoulder - Cervical spondylosis without myelopathy 04/17/2012 - Diverticulosis of colon (without mention of hemorrhage) - Dry skin 03/21/2010 - Generalized osteoarthrosis, unspecified site 08/21/2005 - Hair loss 03/21/2010 - Internal hemorrhoids without mention of complication - Leg swelling - Lower leg edema - Macular degeneration (senile) of retina, unspecified 08/21/2005 - Myalgia and myositis, unspecified - Open wound of scalp, without mention of complication - Osteopenia 02/03/2009 BMD with no significant change from previous. Vitamin D 02/19 - 42.4 - Sciatica 05/27/2007 - Unspecified essential hypertension PAST SURGICAL HISTORY Procedure Laterality Date - COLONOSCOP W/ OR W/O [facility] SPEC 11/21/05 - REPAIR ROTATOR CUFF,ACUTE 2004 right rotator cuff repair Ephedrine; Poison Akash; Sudafed [Pseudoephedrine Hcl]; Environmental [Other] Medications reviewed: Yes FAMILY HISTORY Problem Relation Age of Onset - Breast Cancer Sister - Alzheimer's Disease Mother - Aneurysm Father Cerebral, hs HTN - Lipids, Osteoporosis [Other] [OTHER] Sister - None Daughter - None Son - melanoma [Other] [OTHER] Sister SOCIAL HISTORY: Social History Marital status: Spouse name: Keven Years of education: Number of children: 2 Occupational History Occupation Employer Comment RETIRED [employer] Social History Main Topics Smoking status: Never Smoker Smokeless status: Never Used Alcohol use: Yes Comment: 2 TO 3 DRINKS WEEK Drug use: No Maria Teresa likes to exercise by going to [place]. She watches her diet for sodium, low fat and low cholesterol most of the time. List of current specialists seen: End of Live Planning discussed including patients advanced directive wishes: Yes I am willing to follow Maria Teresa's advanced directives. Depression screen She in the past two weeks denies having felt down, depressed, hopeless or with little interest or pleasure in doing things. Functional Ability/Safety Screen 1. Was the patient's timed Up and Go test unsteady or longer than 30 seconds? No 2. Does the patient need help with the phone, transportation, shopping,preparing meals, housework, laundry, medications or managing money? No 3. Does your home have rugs in the hallway, lack of grab bars in the bathroom, lack of handrails on the stairs or have poor lighting? No Hearing Evaluation: normal PHYSICAL EXAM BP 134/66 (BP Site: Left Arm, BP Position: Sitting, BP Cuff Size: Regular Adult) Pulse 60 Resp 12 Ht 156.2 cm (5' 1.5ANDquot;) Wt 52.2 kg (115 lb) SpO2 98% BMI 21.38 kg/m2 Alert and oriented X 3: NO Body mass index is 21.38 kg/(m2). ASSESSMENT/PLAN: 82 year old female The following prevention plan was discussed during the office visit and provided to the patient: - Glaucoma screening - Lipid panel NINA TURNER MD Reason for Visit Patient presents with: Established Patient: medicare wellness Maria Teresa Velazquez is a 82 year old female who presents here today for Above Complaints.. Health Maintenance There are no preventive care reminders to display for this patient. 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 Usually stiffness is not more than half an hour. Essential hypertension BP is well controlled on current regimen of medicines which is tolerated well. No significant side effects Hypothyroidism Has hypothyroidism on the current medication she is doing well. Currently no signs of hypothyoidism. No constipation, depression , low energy or dryness of skin. Osteopenia Dr Hurst monitors her bone density. PAST MEDICAL HISTORY Diagnosis Date - Adhesive capsulitis of shoulder - Cervical spondylosis without myelopathy 04/17/2012 - Diverticulosis of colon (without mention of hemorrhage) - Dry skin 03/21/2010 - Generalized osteoarthrosis, unspecified site 08/21/2005 - Hair loss 03/21/2010 - Internal hemorrhoids without mention of complication - Leg swelling - Lower leg edema - Macular degeneration (senile) of retina, unspecified 08/21/2005 - Myalgia and myositis, unspecified - Open wound of scalp, without mention of complication - Osteopenia 02/03/2009 BMD with no significant change from previous. Vitamin D 02/19 - 42.4 - Sciatica 05/27/2007 - Unspecified essential hypertension PAST SURGICAL HISTORY Procedure Laterality Date - COLONOSCOP W/ OR W/O BRSH SPEC 11/21/05 - REPAIR ROTATOR CUFF,ACUTE 2004 right rotator cuff repair FAMILY HISTORY Problem Relation Age of Onset - Breast Cancer Sister - Alzheimer's Disease Mother - Aneurysm Father Cerebral, hs HTN - Lipids, Osteoporosis [Other] [OTHER] Sister - None Daughter - None Son - melanoma [Other] [OTHER] Sister Social History Substance Use Topics - Smoking status: Never Smoker - Smokeless tobacco: Never Used - Alcohol use Yes Comment: 2 TO 3 DRINKS WEEK Past medical history, appointments, medications, allergies reviewed. Pertinent Lab/Diagnostic Studies are reviewed and discussed today Current Outpatient Prescriptions: - citalopram (CELEXA) 20 mg tablet - irbesartan (AVAPRO) 150 mg tablet - folic acid 1 mg tablet - methotrexate 2.5 mg tablet - Cholecalciferol, Vitamin D3, (VITAMIN D-3) 2,000 unit cap - amLODIPine (NORVASC) 2.5 mg tablet - vit A,C,N-Cwju-Gvelqg (OCUVITE PRESERVISION) 7,160-113-100 nkgu-hs-irtk tab - Ibandronate (BONIVA) 150 mg tablet - levothyroxine (SYNTHROID) 50 mcg tablet - calcium carbonate 600 mg-cholecalciferol 200 units (CALCIUM 600 + D,3,) 600 mg(1,500mg) -200 unit ORAL Tab - [place]-3 Fatty Acids-Vitamin E (FISH OIL) 1,000 mg ORAL Cap - ALEVE 220 MG TAB Review of Systems CONSTITUTIONAL: No fevers, chills night sweats, unintended weight loss CARDIOVASCULAR: No chest pain, dyspnea, palpitations, orthopnea, PND, ankle edema. PULM: No dyspnea, unexplained cough. GI: No dysphagia/odynophagia, problematic reflux, constipation, diarrhea, changes in stool habits, hematochezia, melena. : No new urinary complaints, including dysuria, gross hematuria or pyuria. NEURO: No new balance problems, peripheral weakness/paresthesias or numbness of concern. Physical Exam BP 134/66 (BP Site: Left Arm, BP Position: Sitting, BP Cuff Size: Regular Adult) Pulse 60 Resp 12 Ht 156.2 cm (5' 1.5ANDquot;) Wt 52.2 kg (115 lb) SpO2 98% BMI 21.38 kg/m2 General appearance: Well appearing, alert, in no acute distress, well nourished. Skin: Skin color, texture, turgor normal, no suspicious rashes or lesions Head: Normocephalic, no masses, lesions, tenderness or abnormalities Eyes: Anicteric sclera. Pupils are equally round and reactive to light. Extraocular movements are intact. Lungs: Lungs clear to auscultation. No wheezing, rhonchi, rales Heart: RRR without murmur, gallop, or rubs. ASSESSMENT/PLAN: 1. Medicare annual wellness visit, subsequent - ICD9: V70.0, ICD10: Z00.00 (primary diagnosis) - Encouraged monthly Breast Self Exam - Follow up for annual exam in one year. 2. Rheumatoid arthritis with positive rheumatoid factor, involving unspecified site (HCC) - ICD9: 714.0, ICD10: M05.9 Cont he methotrexate 3. Essential hypertension - ICD9: 401.9, ICD10: I10 - good control - Recommended regular aerobic exercise. - Recommend home blood pressure monitoring, to bring results in on next visit - Goal of BP ANDlt;130/80 4. Acquired hypothyroidism - ICD9: 244.9, ICD10: E03.9 - Instructed patient on importance of taking on an empty stomach either first thing in the morning or at bedtime. 5. Osteopenia, unspecified location - ICD9: 733.90, ICD10: M85.80 - Reviewed the need for Calcium and Vitamin D supplements and weight bearing exercise as tolerated NINA TURNER MD Referring Provider: NINA TURNER [[id number]] Allergies As of Date: 06/11/2017 Noted Allergy Reaction EPHEDRINE 03/20/2005 4 - Hives POISON AKASH 03/27/2005 SUDAFED (PSEUDOEPHEDRINE HCL) 03/20/2005 4 - Hives environmental [Other] 03/20/2005 Date Reviewed: 06/11/2017 Reviewed by: Erma Sparrow LPN - Fully Assessed Reason for Visit: Established Patient [175] Cmt: medicare wellness Primary Visit Diagnosis:Medicare annual wellness visit, subsequent [Z00.00] Other Visit Diagnoses:Rheumatoid arthritis with positive rheumatoid factor, involving unspecified site (HCC) [M05.9] Essential hypertension [I10] Acquired hypothyroidism [E03.9] Osteopenia, unspecified location [M85.80] Order(s):irbesartan (AVAPRO) 150 mg tabletTake 1 tablet by mouth daily at bedtime.Disp: 90 tabletRfl: 3 Prescriptions as of 06/11/2017 Sig: IRBESARTAN 150 MG TABLET Take 1 tablet by mouth daily * CITALOPRAM 20 MG TABLET TAKE 1/2 TABLET BY MOUTH ONCE* FOLIC ACID 1 MG TABLET Take 2 mg by mouth once daily. METHOTREXATE SODIUM 2.5 MG TA* Take 2.5 tablets by mouth noreen* CHOLECALCIFEROL (VITAMIN D3) * Take 2,000 Units by mouth onc* AMLODIPINE 2.5 MG TABLET Take 1 tablet by mouth once d* VITAMINS A,C,K-GGPT-QLBCPU 7* Take 1 tablet by mouth twice * IBANDRONATE 150 MG TABLET Take 1 tablet by mouth once e* LEVOTHYROXINE 50 MCG TABLET Take 1 tablet by mouth once d* * CALCIUM CARBONATE 600 MG (1,5* Take 1 tablet by mouth once d* * OMEGA-3 FATTY ACIDS-VITAMIN E* Take 1 capsule by mouth once * * ALEVE 220 MG TABLET As needed Problem List As Of Date 06/11/2017 Noted Resolved DERMATITIS NOS [L25.9] INVALID FOR*08/21/2005 Essential hypertension [I10] INVALID FOR* More... MACULAR DEGENERATION NOS [H35.30] INVALID FOR* More... Primary osteoarthritis involving multiple joint*INVALID FOR* More... Hypothyroidism [E03.9] INVALID FOR* More... Osteopenia [M85.80] INVALID FOR* More... Hyperlipemia [E78.5] INVALID FOR*10/27/2013 More... Bursitis of left hip [M70.72] INVALID FOR*11/18/2014 Osteoarthritis [M19.90] INVALID FOR*10/21/2012 Multinodular goiter [E04.2] INVALID FOR* More... More... Hyperlipidemia [E78.5] INVALID FOR* Depressed [F32.9] INVALID FOR* More... Right leg pain [M79.604] INVALID FOR* Lumbar radiculopathy [M54.16] INVALID FOR* Rheumatoid arthritis with positive rheumatoid f*INVALID FOR* More... Prescriptions ordered this encounter Disp Refills Start End IRBESARTAN 150 MG TABLET 90 t* 3 06/11/2017 Route: ORAL Sig: Take 1 tablet by mouth daily at bedtime. Medications Discontinued During This Encounter irbesartan (AVAPRO) 150 mg tablet 90 t* 3 12/11/2016 06/11/2017 Route: ORAL Sig: Take 1 tablet by mouth daily at bedtime. Disc: Reason for discontinue is not on file. Encounter Status:Closed by NINA TURNER MD on 06/11/17 BASIC METABOLIC Collected: 06/07/2017 Status: F Source: JANNIE PROFILE (BMP) 7:27 AM [facility] REPOSITORY TYPE CODE TESTS RESULT OUT OF RANGE REFERENCE UNITS LAB L501.0100 70-110 mg/dL Normal GLU 89 LAB L501.1000 7-18 mg/dL High BUN 22 LAB L501.1100 0.55-1.02 mg/dL Normal 0.88 CREAT,SERUM Result Comment: The validity of the calculated GFR AND GFRAA in patients over 70 years has not been determined. Clinical correlation is essential. LAB L501.1110 >60 mL/min Normal EST GFR 65 Result Comment: Non- GFR Calc LAB L501.1115 >60 mL/min Normal EST GFR - AA 79 Result Comment: GFR Calc LAB L501.1300 10-20 RATIO High BUN/CRE 24.9 LAB L501.2200 8.5-10.1 mg/dL CA Normal 8.5 LAB L501.5300 136-145 mmol/L NA Normal 141 LAB L501.5600 3.5-5.1 mmol/L K Normal 3.8 LAB L501.5900 98-107 mmol/L CL Normal 106 LAB L501.6100 21.0-32.0 mmol/L Normal CO2 28.0 LAB L501.6200 5-15 Normal GAP 7 Performed By: #### L500.2500 #### [facility] [place], [address] [facility] Observed: 05/29/2017 Status: COMPLETED Source: [place] 12:00 AM [facility] REPOSITORY Patient Outreach ([facility]) MARIA TERESA VELAZQUEZ ([id number]) 1935 F Date Time Provider Department 05/29/17 YUENINA [facility] During your visit today, we recorded the following information about you: Allergies As of Date: 05/29/2017 Noted Allergy Reaction EPHEDRINE 03/20/2005 4 - Hives POISON AKASH 03/27/2005 SUDAFED (PSEUDOEPHEDRINE HCL) 03/20/2005 4 - Hives environmental [Other] 03/20/2005 Date Reviewed: 11/30/2016 Reviewed by: Djeah Paul Client Service Supervisor - Fully Assessed Visit Diagnosis:Medication management [Z79.899] Order(s):BASIC METABOLIC PNL [SQBMP] Order #: [id number] FUTURE Prescriptions as of 05/29/2017 Sig: CITALOPRAM 20 MG TABLET TAKE 1/2 TABLET BY MOUTH ONCE* X IRBESARTAN 150 MG TABLET Take 1 tablet by mouth daily * FOLIC ACID 1 MG TABLET Take 2 mg by mouth once daily. METHOTREXATE SODIUM 2.5 MG TA* Take 2.5 tablets by mouth noreen* CHOLECALCIFEROL (VITAMIN D3) * Take 2,000 Units by mouth onc* X AMLODIPINE 2.5 MG TABLET Take 1 tablet by mouth once d* VITAMINS A,C,V-QMYT-BENVVL 7* Take 1 tablet by mouth twice * IBANDRONATE 150 MG TABLET Take 1 tablet by mouth once e* LEVOTHYROXINE 50 MCG TABLET Take 1 tablet by mouth once d* * CALCIUM CARBONATE 600 MG (1,5* Take 1 tablet by mouth once d* * OMEGA-3 FATTY ACIDS-VITAMIN E* Take 1 capsule by mouth once * * ALEVE 220 MG TABLET As needed Problem List As Of Date 05/29/2017 Noted Resolved DERMATITIS NOS [L25.9] INVALID FOR*08/21/2005 Essential hypertension [I10] INVALID FOR* More... MACULAR DEGENERATION NOS [H35.30] INVALID FOR* More... Primary osteoarthritis involving multiple joint*INVALID FOR* More... Hypothyroidism [E03.9] INVALID FOR* More... Osteopenia [M85.80] INVALID FOR* More... Hyperlipemia [E78.5] INVALID FOR*10/27/2013 More... Bursitis of left hip [M70.72] INVALID FOR*11/18/2014 Osteoarthritis [M19.90] INVALID FOR*10/21/2012 Multinodular goiter [E04.2] INVALID FOR* More... More... Hyperlipidemia [E78.5] INVALID FOR* Depressed [F32.9] INVALID FOR* More... Right leg pain [M79.604] INVALID FOR* Lumbar radiculopathy [M54.16] INVALID FOR* Rheumatoid arthritis with positive rheumatoid f*INVALID FOR* More... Encounter Status:Closed by [employer], PRODUSER on 07/01/17 ALLERGIES ALLERGIES DATE TYPE / CODE NAME / CODE REACTION SEVERITY SOURCE Drug pseudoephedrine/F006 Hives Unknown [place] 7 Allergy/[id number]( 732551(RXNORM) [facility] SNOMED CT) Hospital Repository Environ/[id number]( POISON AKASH [place] [address]) Clinic Main [place] Rep[facility] DRUG EPHEDRINE HIVES [place] INGREDI/933817222( [facility] Main SNOMED CT) [place] Rep[facility] DRUG PSEUDOEPHEDRINE HCL HIVES [place] INGREDI/732099849( [facility] Main SNOMED CT) [place] Rep[facility] Miscellaneous OTHER [place] 5 Allergy/209182117( [facility] Main SNOMED CT) [place] Rep[facility] ENCOUNTERS ENCOUNTERS ADMIT/DISCHARGE ACCOUNT ADMITTING ENCOUNTER LOCATION SOURCE NUMBER CLASS 04/16/2018 [id number] Ambulatory [facility] ing:LAB Repository 04/11/2018 [id number] Ambulatory [facility] Hospital ing:LAB Repository 03/22/2018 [id number] Ambulatory [facility] Hospital ing:LAB Repository 01/12/2018 [id number] Ambulatory [facility] Hospital ing:LAB Repository 12/10/2017 [id number] Ambulatory [facility] Hospital ing:LAB Repository 12/10/2017/12/12/19 [id number] Ambulatory [address] Repository 10/16/2017 [id number] Ambulatory [facility] ing:LAB Repository 09/06/2017 [id number] Ambulatory [facility] Hospital ing:LAB Repository 07/24/2017 [id number] [facility] ing:LAB Repository 06/11/2017/06/14/19 [id number] Ambulatory [address] Repository 06/07/2017 [id number] [facility] ing:LAB Repository PAYERS PAYERS ENCOUNTER GUARANTOR PAYER SUBSCRIBER SOURCE 04/16/2018 MARIA TERESA L Primary MARIA TERESA L Pace [id number] Insurance:[place] IADCDOB: [id number] Number: Repository [id number]: 330 [id number] [phone] () Date:8092-02-88TY [address] [address]TG: 04/16/2018 Secondary NOT GIVENUNK Pace Insurance:SELF PAY [facility] Number: Effective Repository Date:2018-04-16 04/11/2018 MARIA TERESA L Primary MARIA TERESA L Pace [id number] [facility] [id number] Area Hospital Number: Repository [id number]: 330 [id number] [phone] (HP) Date:0605-79-60ZY [address] [address]KM: 04/11/2018 Secondary NOT GIVENUNK Jannie Insurance:SELF PAY [facility] Number: Effective Repository Date:2018-04-11 03/22/2018 MARIA TERESA L Primary MARIA TERESA L Jannie [id number] Insurance:ARTEMIO IAMSDOB: [facility] [id number] Area Hospital Number: Repository [address]Quw: 330 [id number] [phone] () Date:6850-09-04ZB [facility] [address] [address]TI: 03/22/2018 Secondary NOT GIVENUNK Jannie Insurance:SELF PAY [facility] Number: Effective Repository Date:2018-03-22 01/12/2018 Maria Teresa L Primary Maria Teresa L Jannie [id number] Insurance:ARTEMIO IamsDOB: [facility] [id number]. [facility] Number: Repository [id number]: 330 [id number] [phone] () Date:2857-40-99DQ [address] [address]EB: 01/12/2018 Secondary NOT GIVENUNK Jannie Insurance:SELF PAY [facility] Number: Effective Repository Date:2018-01-12 12/10/2017 Maria Teresa L Primary Maria Teresa L Jannie [id number] Insurance:ARTEMIO IamsDOB: [facility] [id number]. Cloud VA Health Care [facility] Number: Repository [id number]: 330 [id number] [phone] () Date:3279-01-72EB [facility] [address] [address]KH: 12/10/2017 Secondary NOT GIVENUNK Pace Insurance:SELF PAY [facility] Number: Effective Repository Date:2017-12-10 10/16/2017 Maria Teresa L Primary Maria Teresa L Jannie [id number] Insurance:ARTEMIO IamsDOB: [facility] [id number]. Cloud VA Health Care [facility] Number: Repository [id number]: 330 [id number] [phone] (HP) Date:9975-41-53RB [address] [place] [address]KL: 10/16/2017 Secondary NOT GIVENUNK Pace Insurance:SELF PAY [facility] Number: Effective Repository Date:2017-10-16 09/06/2017 Maria Teresa L Primary Maria Teresa L Jannie [id number] Insurance:ARTEMIO IamsDOB: [facility] [id number]. Cloud VA Health Care [facility] Number: Repository [id number]: 330 [id number] [phone] (HP) Date:8084-36-90WR [facility] [address] [address]RW: 09/06/2017 Secondary NOT GIVENUNK Jannie Insurance:SELF PAY [facility] Number: Effective Repository Date:2017-09-06 07/24/2017 Maria Teresa L Primary Maria Teresa L Pace [id number] Insurance:ARTEMIO IamsDOB: [facility] [id number]. Cloud VA Health Care [facility] Number: Repository [id number]: 330 [id number] [phone] (HP) Date:3325-07-22WU [facility] [address] [address]XS: 07/24/2017 Secondary NOT GIVENUNK Jannie Insurance:SELF PAY [facility] Number: Effective Repository Date:2017-07-24 06/07/2017 Maria Teresa L Primary Maria Teresa L Pace [id number] Insurance:ARTEMIO IamsDOB: [facility] [id number]. Cloud VA Health Care [facility] Number: Repository [id number]: 330 [id number] [phone] (HP) Date:7248-54-22SH [address] [address]IV: 06/07/2017 Secondary NOT GIVENUNK Jannie Insurance:SELF PAY [facility] Number: Effective Repository Date:2017-06-07
== END ==
PROVIDERS: Family Provider Internal Medicine; PCP Internal Medicine; Referring Provider Internal Medicine Endocrinology, Diabetes & Metabolism; Visit Provider Internal Medicine Endocrinology, Diabetes & Metabolism
DX: E03.8 Other specified hypothyroidism (principal)
CPT/HCPCS: 36415; 84443

== ENCOUNTER → 2018-04-16 11:03 | Outpatient (CLI) | payer MEDICARE, SELFPAY ==
[2018-04-16 11:41] LABS: Absolute Lymphocyte Count 1.13 X10^3/ul (0.83-4.51); Absolute Neutrophil Count 3.5 X10^3/uL (2.0-7.7); Basophil# 0.01 X10^3/uL; Basophil% 0.2 % (0-1); Eosinophil# 0.07 X10^3/uL; Eosinophils% 1.3 % (0-5); Hematocrit 38.6 % (37-47); Hemoglobin 12.7 g/dl (12.0-15.0); Lymphocyte # 1.13 X10^3/ul (4.0); Lymphocyte % 21.8 % (19-41); Mean Corp Hgb Conc 32.9 g/gl (32-36); Mean Corpuscular Hgb 33.2 pg (27.0-32.0); Mean Corpuscular Volume 100.8 fL (81-99); Mean Platelet Vol. 10.4 fl (6.2-12.0); Monocyte# 0.45 X10^3/uL; Monocyte% 8.7 % (0-10); Neutrophil # 3.52 X10^3/uL (2.7-7.7); Neutrophil % 67.8 % (47-70); POSITIVE COUNT NO; POSITIVE DIFFERENTIAL NO; POSITIVE MORPHOLOGY NO; Platelet Count 279 K/mm3 (150-450); RBC Distribution Width CV 14.2 % (11.6-14.6); RBC Distribution Width SD 51.3 fl (35.1-43.9); Red Blood Count 3.83 M/mm3 (4.2-5.4); White Blood Count 5.2 K/mm3 (4.4-11.0)
== END ==
PROVIDERS: Family Provider Internal Medicine; PCP Internal Medicine; Referring Provider Internal Medicine Rheumatology; Visit Provider Internal Medicine Rheumatology
DX: M06.4 Inflammatory polyarthropathy (principal); Z79.899 Other long term (current) drug therapy; M35.00 Sjogren syndrome, unspecified; M15.9 Polyosteoarthritis, unspecified; M18.0 Bilateral primary osteoarthritis of first carpometacarpal joints; M16.0 Bilateral primary osteoarthritis of hip; L30.9 Dermatitis, unspecified; M81.0 Age-related osteoporosis without current pathological fracture
CPT/HCPCS: 36415; 85025

== ENCOUNTER → 2018-06-11 10:34 | Outpatient (CLI) | payer MEDICARE, SELFPAY ==
[2018-06-11 11:47] LABS: Thyroid Stim Hormone (TSH) 2.26 uIU/mL (0.358-3.74)
== END ==
PROVIDERS: Family Provider Internal Medicine; PCP Internal Medicine; Referring Provider Internal Medicine; Visit Provider Internal Medicine
DX: Z79.899 Other long term (current) drug therapy (principal)
CPT/HCPCS: 36415; 84443

== ENCOUNTER → 2018-07-10 15:30 | Outpatient (CLI) | payer MEDICARE, SELFPAY ==
[2018-07-10 16:28] LABS: Basophil# 0.01 X10^3/uL; Basophil% 0.2 % (0-1); Eosinophils% 2.1 % (0-5); Hematocrit 36.2 % (37-47); Lymphocyte % 25.3 % (19-41); Mean Corp Hgb Conc 33.1 g/gl (32-36); Mean Corpuscular Hgb 33.8 pg (27.0-32.0); Mean Platelet Vol. 10.7 fl (6.2-12.0); Monocyte# 0.49 X10^3/uL; Monocyte% 10.3 % (0-10); Neutrophil # 2.95 X10^3/uL (2.7-7.7); Neutrophil % 62.1 % (47-70); Platelet Count 257 K/mm3 (150-450); RBC Distribution Width CV 14.2 % (11.6-14.6); RBC Distribution Width SD 52.2 fl (35.1-43.9); Red Blood Count 3.55 M/mm3 (4.2-5.4); White Blood Count 4.8 K/mm3 (4.4-11.0)
[2018-07-10 16:30] LABS: POSITIVE COUNT NO; POSITIVE DIFFERENTIAL NO; POSITIVE MORPHOLOGY NO
[2018-07-10 17:02] LABS: ALB/GLOB Ratio 1.3 RATIO (0.9-2.4); AST(SGOT) 31 U/L (15-37); Alanine Aminotransfer ALT/SGPT 29 U/L (13-56); Albumin, Serum 3.6 g/dL (3.2-5.0); Alkaline Phosphatase 76 U/L (45-117); Anion Gap 8 (5-15); BUN 24 mg/dL (7-18); BUN/Creat Ratio 25.3 RATIO (10-20); Calcium,Total 8.9 mg/dL (8.5-10.1); Chloride 108 mmol/L (98-107); Creatinine, Serum 0.95 mg/dL (0.55-1.02); EST Glomerular Filtration Rate 60 mL/min (>60); Est Glom Filt Rate - Afr Amer 72 mL/min (>60); Globulin 2.8 g/dL (2.2-4.2); Glucose 109 mg/dL (74-106); Potassium 4.4 mmol/L (3.5-5.1); Protein, Total 6.4 g/dL (6.4-8.2); Sodium Level 143 mmol/L (136-145)
== END ==
PROVIDERS: Family Provider Internal Medicine; PCP Internal Medicine; Referring Provider Internal Medicine Rheumatology; Visit Provider Internal Medicine Rheumatology
DX: M06.4 Inflammatory polyarthropathy (principal); M35.00 Sjogren syndrome, unspecified; M18.0 Bilateral primary osteoarthritis of first carpometacarpal joints; M16.0 Bilateral primary osteoarthritis of hip; L30.9 Dermatitis, unspecified; M81.0 Age-related osteoporosis without current pathological fracture; Z79.899 Other long term (current) drug therapy
CPT/HCPCS: 36415; 80053; 85025

== ENCOUNTER 2018-08-13 11:30 | Outpatient (RCR) | payer MEDICARE, SELFPAY ==
--- NOTE | 2018-07-16 09:12 | HP.PTEVAL ---
Patient's Visit Information TRA VELAZQUEZ is a 83 year old F referred to Physical Therapy by Ashleigh Ferraro MD with a diagnosis of LEFT RTC IMPINGEMENT. Date of Evaluation: 07/16/18 Physical Therapist: Raul Jeronimo PT, Cert MDT, OCS - Visit Plan Frequency: 2x /Week Duration: 4 Weeks Plan: RTC/SCAPULAR STRENGTHENING,POSTURAL EX'S,US ,MHP - Subjective Findings: This 83 y/o female presents to physical therapy left RTC impingemnent. This patient in March 2018 without trauma ,incsidous onset.Pain loacted lateral deltoid. Patient has h/o RA. Patient pain desribed as ache. Patient pain in left arm affects ASL's and housework tasks above 90 degrees.Patient had right RTC repair. Patient denies parathesia/tingling. Pateint pain affects sleeping. Patient left shoulder pain affects QOL and function. SOCIAL: . VOCATION: - Pain Left Shoulder Pain Intensity (Out of 10): 3 Pain Intensity Range: 10 - Objective POSTURE: mild foward posture,rounded shoulders. NEURO: intact. PALAPTION: tender AC. AROM: flexion 150 ,abduction 150 painfull arc,ER 80 degrees,IR 70. MMT: RTC 4/5 ,supraspinatous 4-/5,deltoid 4-/5 - Special Tests L Shoulder External Rotation Lag Test - RC Tear: Negative L Shoulder Supine Impingement Test - RC Tear: Negative L Shoulder Lift Off Test - Subscapular Tear: Negative L Shoulder Drop Sign - IS Test: Negative L Shoulder Empty Can - SS: Negative L Shoulder Neer - Impingement: Positive L Shoulder [place] - Impingement: Positive - Goals Goal 1:: Patient to be Independant with HEP Goal Time Frame: 4-6 Weeks Goal 2:: Patient improve posture for ADL'S 80% Goal Time Frame: 4-6 Weeks Goal 3:: Patient to improve AROM shoulder with less pain for ADLS' Goal Time Frame: 4-6 Weeks Goal 4:: Patient increase strength lrft shoulder 4/5 to improve function. Goal Time Frame: 4-6 Weeks Goal 5:: Patient to improve quick dash score by 5 points to improve QOL. Goal Time Frame: 4-6 Weeks - Rehabilitation Potential Physical Therapy Diagnosis: This patient has left shoulder tendonitis with painfull arc with ADL'S and activities above 90 degrees impairs housework tasks thus benofit from skilled PT. Rehabilitation Potential: Good - Anticipated Interventions Patient/Client Instruction: Educate patient on: Condition, Plan of Care For the Purpose of:: To decrease pain, To increase ROM, To improve ability to perform ADL's, To increase tolerance to activity/condition/position, To improve performance and independence with ADL's, To improve ability of physical actions for home/community/work/leisure, To improve health of tissue, To increase flexibility/ROM Therapeutic Exercise to Include: Strength training, Postural training, Active ROM, Scapular Strength/Stabilization Comment: RTC For the Purpose of:: To decrease pain, To increase ROM, To improve muscle performance and motor function, To improve ability to perform ADL's, To increase tolerance to activity/condition/position, To improve performance and independence with ADL's, To improve ability of physical actions for home/community/work/leisure, To improve health of tissue, To decrease soft tissue restriction, To improve ability to perform tasks related to life management Thermo therapy (hot pack): Yes Ultrasound (thermal/non thermal): Yes For the Purpose of:: To decrease pain, To decrease swelling/inflammation, To increase ROM, To improve health of tissue, To decrease soft tissue restriction Thank you for the opportunity to evaluate your patient. For Medicare and Medicare HMO plans, please review the plan of care and approve it. It will need to be FAXED BACK to us at [phone] for Medicare purposes. For Medicare only, by signing this I certify the plan of care. Please let me know if there are questions or concerns regarding this plan of care. Physician Signature: Date:
--- NOTE | 2018-08-13 11:53 | HP.PTDCSUM ---
HP - PT D/C Summary It has been my pleasure to treat TRA VELAZQUEZ under orders from Ashleigh Ferraro MD, for the diagnosis of LEFT RTC IMPINGEMENT for a total of 9 visit(s). Discharge Date: 08/13/18 Please see the following information for a summary of their discharge status. - Subjective Subjective: Doing well no pain Able to do all my ADL'S - Pain Left Shoulder Pain Intensity (Out of 10): 0 - Overall Improvement % Improvement: 100 - Objective Objective/Function: POSTURE: WFL. PALPATION: unremarkable. NEURO: intact. AROM: shoulder flexion 150 degrees,abd 150 degrees. MMT: RTC /DELTOID 4/5 - Goals Goal 1:: Patient to be Independant with HEP Goal Progress: Goal Met Goal 2:: Patient improve posture for ADL'S 80% Goal Progress: Goal Met Goal 3:: Patient to improve AROM shoulder with less pain for ADLS' Goal Progress: Goal Met Goal 4:: Patient increase strength lrft shoulder 4/5 to improve function. Goal Progress: Goal Met Goal 5:: Patient to improve quick dash score by 5 points to improve QOL. Goal Progress: Goal Met - Plan Plan: D/C TO HEP - D/C Information Discharge Comments: HEP If there are questions or concerns regarding this patient's physical therapy, please feel free to call me at [phone]. Thank you for the referral of this patient. Sincerely, Raul Jeronimo, PT, Cert MDT, OCS
== END 2018-08-13 19:00 | disposition home or self-care (01) ==
LOC: PT 11:30
PROVIDERS: Family Provider Internal Medicine; PCP Internal Medicine; Referring Provider Internal Medicine Rheumatology; Visit Provider Internal Medicine Rheumatology
DX: M06.4 Inflammatory polyarthropathy (principal); M35.00 Sjogren syndrome, unspecified; M18.0 Bilateral primary osteoarthritis of first carpometacarpal joints; M16.0 Bilateral primary osteoarthritis of hip; M81.0 Age-related osteoporosis without current pathological fracture; H35.30 Unspecified macular degeneration
CPT/HCPCS: 97014; 97035; 97110; 97162; 97530; G0283

== ENCOUNTER → 2018-10-08 10:29 | Outpatient (CLI) | payer MEDICARE, SELFPAY ==
[2018-10-08 11:54] LABS: Absolute Lymphocyte Count 0.86 X10^3/ul (0.83-4.51); Absolute Neutrophil Count 3.4 X10^3/uL (2.0-7.7); Basophil# 0.01 X10^3/uL; Basophil% 0.2 % (0-1); Eosinophil# 0.19 X10^3/uL; Eosinophils% 3.7 % (0-5); Hemoglobin 11.8 g/dl (12.0-15.0); Lymphocyte # 0.86 X10^3/ul (4.0); Lymphocyte % 16.7 % (19-41); Mean Corp Hgb Conc 33.7 g/gl (32-36); Mean Corpuscular Hgb 33.9 pg (27.0-32.0); Mean Corpuscular Volume 100.6 fL (81-99); Monocyte# 0.68 X10^3/uL; Monocyte% 13.2 % (0-10); Neutrophil # 3.39 X10^3/uL (2.7-7.7); Platelet Count 220 K/mm3 (150-450); RBC Distribution Width CV 14.6 % (11.6-14.6); RBC Distribution Width SD 51.3 fl (35.1-43.9); Red Blood Count 3.48 M/mm3 (4.2-5.4); White Blood Count 5.1 K/mm3 (4.4-11.0)
[2018-10-08 12:01] LABS: POSITIVE COUNT NO; POSITIVE DIFFERENTIAL NO; POSITIVE MORPHOLOGY NO
[2018-10-08 12:27] LABS: ALB/GLOB Ratio 1.1 RATIO (0.9-2.4); AST(SGOT) 32 U/L (15-37); Alanine Aminotransfer ALT/SGPT 39 U/L (13-56); Albumin, Serum 3.2 g/dL (3.2-5.0); Alkaline Phosphatase 81 U/L (45-117); Anion Gap 7 (5-15); BUN 17 mg/dL (7-18); BUN/Creat Ratio 19.3 RATIO (10-20); Calcium,Total 8.4 mg/dL (8.5-10.1); Chloride 109 mmol/L (98-107); Creatinine, Serum 0.88 mg/dL (0.55-1.02); EST Glomerular Filtration Rate 65 mL/min (>60); Est Glom Filt Rate - Afr Amer 79 mL/min (>60); Glucose 86 mg/dL (74-106); Potassium 4.1 mmol/L (3.5-5.1); Protein, Total 6.2 g/dL (6.4-8.2); Sodium Level 142 mmol/L (136-145)
== END ==
PROVIDERS: Family Provider Internal Medicine; PCP Internal Medicine; Referring Provider Internal Medicine Rheumatology; Visit Provider Internal Medicine Rheumatology
DX: M06.4 Inflammatory polyarthropathy (principal); M35.00 Sjogren syndrome, unspecified; M18.0 Bilateral primary osteoarthritis of first carpometacarpal joints; M16.0 Bilateral primary osteoarthritis of hip; L30.9 Dermatitis, unspecified; Z79.899 Other long term (current) drug therapy
CPT/HCPCS: 36415; 80053; 85025

== ENCOUNTER → 2018-11-15 10:32 | Outpatient (CLI) | payer MEDICARE, SELFPAY ==
[2018-11-15 11:23] LABS: ALB/GLOB Ratio 1.2 RATIO (0.9-2.4); AST(SGOT) 37 U/L (15-37); Alanine Aminotransfer ALT/SGPT 37 U/L (13-56); Albumin, Serum 3.3 g/dL (3.2-5.0); Alkaline Phosphatase 73 U/L (45-117); Anion Gap 3 (5-15); BUN 18 mg/dL (7-18); BUN/Creat Ratio 19.5 RATIO (10-20); Calcium,Total 8.7 mg/dL (8.5-10.1); Chloride 108 mmol/L (98-107); Creatinine, Serum 0.92 mg/dL (0.55-1.02); EST Glomerular Filtration Rate 62 mL/min (>60); Est Glom Filt Rate - Afr Amer 75 mL/min (>60); Globulin 2.7 g/dL (2.2-4.2); Glucose 83 mg/dL (74-106); Potassium 4.1 mmol/L (3.5-5.1); Sodium Level 139 mmol/L (136-145); Thyroid Stim Hormone (TSH) 2.12 uIU/mL (0.358-3.74)
== END ==
PROVIDERS: Family Provider Internal Medicine; PCP Internal Medicine; Referring Provider Internal Medicine Endocrinology, Diabetes & Metabolism; Visit Provider Internal Medicine Endocrinology, Diabetes & Metabolism
DX: E03.8 Other specified hypothyroidism (principal)
CPT/HCPCS: 36415; 80053; 84443

== ENCOUNTER → 2018-12-28 10:14 | Outpatient (CLI) | payer MEDICARE, SELFPAY ==
[2018-12-28 11:07] LABS: Absolute Lymphocyte Count 1.03 X10^3/uL (0.83-4.51); Absolute Neutrophil Count 3.1 X10^3/uL (2.0-7.7); Basophil# 0.02 X10^3/uL; Basophil% 0.4 % (0-1); Eosinophils% 2.2 % (0-5); Hematocrit 35.1 % (37-47); Hemoglobin 11.7 g/dL (12.0-15.0); Lymphocyte # 1.03 X10^3/ul (4.0); Lymphocyte % 22.5 % (19-41); Mean Corp Hgb Conc 33.3 g/dL (32-36); Mean Corpuscular Hgb 34.5 pg (27.0-32.0); Mean Corpuscular Volume 103.5 fL (81-99); Mean Platelet Vol. 10.8 fl (6.2-12.0); Monocyte# 0.33 X10^3/uL; Monocyte% 7.2 % (0-10); NRBC Flagged by Analyzer 0 % (0-5); Neutrophil # 3.08 X10^3/uL (2.7-7.7); Neutrophil % 67.5 % (47-70); Platelet Count 250 K/mm3 (150-450); RBC Distribution Width CV 14.2 % (11.6-14.6); RBC Distribution Width SD 53.8 fl (35.1-43.9); Red Blood Count 3.39 M/mm3 (4.2-5.4); White Blood Count 4.6 K/mm3 (4.4-11.0)
[2018-12-28 11:29] LABS: ALB/GLOB Ratio 1.1 RATIO (0.9-2.4); AST(SGOT) 25 U/L (15-37); Alanine Aminotransfer ALT/SGPT 26 U/L (13-56); Albumin, Serum 3.3 g/dL (3.2-5.0); Alkaline Phosphatase 78 U/L (45-117); Anion Gap 7 (5-15); BUN 24 mg/dL (7-18); BUN/Creat Ratio 27.6 RATIO (10-20); Calcium,Total 8.2 mg/dL (8.5-10.1); Chloride 110 mmol/L (98-107); Creatinine, Serum 0.87 mg/dL (0.55-1.02); EST Glomerular Filtration Rate 66 mL/min (>60); Est Glom Filt Rate - Afr Amer 80 mL/min (>60); Globulin 2.9 g/dL (2.2-4.2); Glucose 86 mg/dL (74-106); Potassium 3.9 mmol/L (3.5-5.1); Protein, Total 6.2 g/dL (6.4-8.2); Sodium Level 144 mmol/L (136-145)
== END ==
PROVIDERS: Family Provider Internal Medicine; PCP Internal Medicine; Referring Provider Internal Medicine Rheumatology; Visit Provider Internal Medicine Rheumatology
DX: M06.4 Inflammatory polyarthropathy (principal); M35.00 Sjogren syndrome, unspecified; M18.0 Bilateral primary osteoarthritis of first carpometacarpal joints; M16.0 Bilateral primary osteoarthritis of hip; L30.9 Dermatitis, unspecified; Z79.899 Other long term (current) drug therapy
CPT/HCPCS: 36415; 80053; 85025

== ENCOUNTER → 2019-01-25 07:58 | Outpatient (CLI) | payer MEDICARE, SELFPAY ==
[2019-01-25 09:07] LABS: Cholesterol 218 mg/dL (200); High Density Lipoprotein 93 mg/dL; Triglycerides 84 mg/dL; Very Low Density Lipoprotein 17 mg/dL (5-40)
[2019-01-25 09:10] LABS: Vitamin B12 485 pg/mL (211-911)
== END ==
PROVIDERS: Family Provider Internal Medicine; PCP Internal Medicine; Referring Provider Internal Medicine; Visit Provider Internal Medicine
DX: I10 Essential (primary) hypertension (principal); R71.8 Other abnormality of red blood cells
CPT/HCPCS: 36415; 80061; 82607

== ENCOUNTER → 2019-03-27 11:05 | Outpatient (CLI) | payer MEDICARE, SELFPAY ==
[2019-03-27 11:42] LABS: Absolute Lymphocyte Count 1.41 X10^3/uL (0.83-4.51); Absolute Neutrophil Count 3.7 X10^3/uL (2.0-7.7); Basophil# 0.02 X10^3/uL; Basophil% 0.4 % (0-1); Eosinophil# 0.08 X10^3/uL; Eosinophils% 1.4 % (0-5); Hematocrit 38.3 % (37-47); Hemoglobin 12.8 g/dL (12.0-15.0); Lymphocyte # 1.41 X10^3/ul (4.0); Lymphocyte % 25.1 % (19-41); Mean Corp Hgb Conc 33.4 g/dL (32-36); Mean Corpuscular Volume 101.9 fL (81-99); Mean Platelet Vol. 10.6 fl (6.2-12.0); Monocyte# 0.42 X10^3/uL; Monocyte% 7.5 % (0-10); NRBC Flagged by Analyzer 0 % (0-5); Neutrophil # 3.67 X10^3/uL (2.7-7.7); Neutrophil % 65.4 % (47-70); Platelet Count 264 K/mm3 (150-450); RBC Distribution Width SD 51.8 fl (35.1-43.9); Red Blood Count 3.76 M/mm3 (4.2-5.4); White Blood Count 5.6 K/mm3 (4.4-11.0)
[2019-03-27 12:09] LABS: ALB/GLOB Ratio 1.2 RATIO (0.9-2.4); AST(SGOT) 32 U/L (15-37); Alanine Aminotransfer ALT/SGPT 31 U/L (13-56); Albumin, Serum 3.7 g/dL (3.2-5.0); Alkaline Phosphatase 78 U/L (45-117); Anion Gap 7 (5-15); BUN 21 mg/dL (7-18); BUN/Creat Ratio 21.4 RATIO (10-20); Calcium,Total 9.2 mg/dL (8.5-10.1); Chloride 106 mmol/L (98-107); Creatinine, Serum 0.98 mg/dL (0.55-1.02); EST Glomerular Filtration Rate 57 mL/min (>60); Est Glom Filt Rate - Afr Amer 69 mL/min (>60); Globulin 3.2 g/dL (2.2-4.2); Glucose 74 mg/dL (74-106); Potassium 4.1 mmol/L (3.5-5.1); Protein, Total 6.9 g/dL (6.4-8.2); Sodium Level 143 mmol/L (136-145)
== END ==
PROVIDERS: Family Provider Internal Medicine; PCP Internal Medicine; Referring Provider Internal Medicine Rheumatology; Visit Provider Internal Medicine Rheumatology
DX: M06.4 Inflammatory polyarthropathy (principal); Z79.899 Other long term (current) drug therapy; M35.00 Sjogren syndrome, unspecified; M25.561 Pain in right knee; M15.9 Polyosteoarthritis, unspecified; M18.0 Bilateral primary osteoarthritis of first carpometacarpal joints; M16.0 Bilateral primary osteoarthritis of hip; L30.9 Dermatitis, unspecified; M81.0 Age-related osteoporosis without current pathological fracture; H35.30 Unspecified macular degeneration; I10 Essential (primary) hypertension
CPT/HCPCS: 36415; 80053; 85025

== ENCOUNTER → 2019-05-23 11:36 | Outpatient (CLI) | payer MEDICARE, SELFPAY ==
[2019-05-23 12:22] LABS: Absolute Lymphocyte Count 0.84 X10^3/uL (0.83-4.51); Absolute Neutrophil Count 3.2 X10^3/uL (2.0-7.7); Basophil# 0.02 X10^3/uL; Basophil% 0.5 % (0-1); Eosinophil# 0.11 X10^3/uL; Eosinophils% 2.5 % (0-5); Hematocrit 35.3 % (37-47); Hemoglobin 11.9 g/dL (12.0-15.0); Lymphocyte # 0.84 X10^3/ul (4.0); Lymphocyte % 19.1 % (19-41); Mean Corp Hgb Conc 33.7 g/dL (32-36); Mean Corpuscular Hgb 34.3 pg (27.0-32.0); Mean Corpuscular Volume 101.7 fL (81-99); Mean Platelet Vol. 10.4 fl (6.2-12.0); Monocyte# 0.24 X10^3/uL; Monocyte% 5.5 % (0-10); NRBC Flagged by Analyzer 0 % (0-5); Neutrophil # 3.18 X10^3/uL (2.7-7.7); Neutrophil % 72.2 % (47-70); Platelet Count 273 K/mm3 (150-450); RBC Distribution Width CV 14.2 % (11.6-14.6); RBC Distribution Width SD 51.8 fl (35.1-43.9); Red Blood Count 3.47 M/mm3 (4.2-5.4); White Blood Count 4.4 K/mm3 (4.4-11.0)
[2019-05-23 13:18] LABS: ALB/GLOB Ratio 1.1 RATIO (0.9-2.4); AST(SGOT) 29 U/L (15-37); Alanine Aminotransfer ALT/SGPT 26 U/L (13-56); Albumin, Serum 3.3 g/dL (3.2-5.0); Alkaline Phosphatase 82 U/L (45-117); Anion Gap 4 (5-15); BUN 27 mg/dL (7-18); BUN/Creat Ratio 27.6 RATIO (10-20); Calcium,Total 8.8 mg/dL (8.5-10.1); Chloride 107 mmol/L (98-107); Creatinine, Serum 0.98 mg/dL (0.55-1.02); EST Glomerular Filtration Rate 58 mL/min (>60); Est Glom Filt Rate - Afr Amer 70 mL/min (>60); Glucose 88 mg/dL (74-106); Potassium 4.1 mmol/L (3.5-5.1); Protein, Total 6.3 g/dL (6.4-8.2); Sodium Level 139 mmol/L (136-145); Thyroid Stim Hormone (TSH) 2.61 uIU/mL (0.358-3.74)
== END ==
PROVIDERS: Family Provider Internal Medicine; PCP Internal Medicine; Referring Provider Internal Medicine Rheumatology; Visit Provider Internal Medicine Rheumatology
DX: I10 Essential (primary) hypertension (principal); M06.4 Inflammatory polyarthropathy; M35.00 Sjogren syndrome, unspecified; M18.0 Bilateral primary osteoarthritis of first carpometacarpal joints; M16.0 Bilateral primary osteoarthritis of hip; M81.0 Age-related osteoporosis without current pathological fracture; L30.9 Dermatitis, unspecified; H35.30 Unspecified macular degeneration; K57.90 Diverticulosis of intestine, part unspecified, without perforation or abscess without bleeding; I87.2 Venous insufficiency (chronic) (peripheral); E03.8 Other specified hypothyroidism; E04.2 Nontoxic multinodular goiter; Z79.899 Other long term (current) drug therapy
CPT/HCPCS: 36415; 80053; 84443; 85025

== ENCOUNTER → 2019-07-17 14:54 | Outpatient (CLI) | payer MEDICARE, SELFPAY ==
[2019-07-17 15:58] LABS: Vitamin D,25 Hydroxy 51.6 ng/mL
== END ==
PROVIDERS: PCP Internal Medicine; Referring Provider Internal Medicine; Visit Provider Internal Medicine
DX: E55.9 Vitamin D deficiency, unspecified (principal)
CPT/HCPCS: 36415; 82306

== ENCOUNTER → 2019-09-19 10:05 | Outpatient (CLI) | payer MEDICARE, SELFPAY ==
[2019-09-19 10:26] LABS: Absolute Lymphocyte Count 1.02 X10^3/uL (0.83-4.51); Basophil# 0.02 X10^3/uL; Basophil% 0.4 % (0-1); Eosinophil# 0.17 X10^3/uL; Eosinophils% 3.7 % (0-5); Hematocrit 36.7 % (37-47); Lymphocyte # 1.02 X10^3/ul (4.0); Mean Corp Hgb Conc 32.7 g/dL (32-36); Mean Corpuscular Hgb 34.3 pg (27.0-32.0); Mean Corpuscular Volume 104.9 fL (81-99); Mean Platelet Vol. 10.3 fl (6.2-12.0); Monocyte# 0.45 X10^3/uL; Monocyte% 9.7 % (0-10); NRBC Flagged by Analyzer 0 % (0-5); Neutrophil # 2.96 X10^3/uL (2.7-7.7); Platelet Count 225 K/mm3 (150-450); RBC Distribution Width CV 14.6 % (11.6-14.6); RBC Distribution Width SD 55.5 fl (35.1-43.9); White Blood Count 4.6 K/mm3 (4.4-11.0)
[2019-09-19 10:50] LABS: ALB/GLOB Ratio 1.2 RATIO (0.9-2.4); AST(SGOT) 66 U/L (15-37); Alanine Aminotransfer ALT/SGPT 85 U/L (13-56); Albumin, Serum 3.4 g/dL (3.2-5.0); Alkaline Phosphatase 79 U/L (45-117); Anion Gap 5 (5-15); BUN 24 mg/dL (7-18); BUN/Creat Ratio 27.4 RATIO (10-20); Calcium,Total 8.6 mg/dL (8.5-10.1); Chloride 110 mmol/L (98-107); Creatinine, Serum 0.88 mg/dL (0.55-1.02); EST Glomerular Filtration Rate 65 mL/min (>60); Est Glom Filt Rate - Afr Amer 79 mL/min (>60); Globulin 2.8 g/dL (2.2-4.2); Glucose 89 mg/dL (74-106); Potassium 4.3 mmol/L (3.5-5.1); Protein, Total 6.2 g/dL (6.4-8.2); Sodium Level 143 mmol/L (136-145)
== END ==
PROVIDERS: PCP Internal Medicine; Referring Provider Internal Medicine Rheumatology; Visit Provider Internal Medicine Rheumatology
DX: M06.4 Inflammatory polyarthropathy (principal); M35.00 Sjogren syndrome, unspecified; M18.0 Bilateral primary osteoarthritis of first carpometacarpal joints; M16.0 Bilateral primary osteoarthritis of hip; L30.9 Dermatitis, unspecified; M81.0 Age-related osteoporosis without current pathological fracture; H35.30 Unspecified macular degeneration; I10 Essential (primary) hypertension; K57.90 Diverticulosis of intestine, part unspecified, without perforation or abscess without bleeding; I87.2 Venous insufficiency (chronic) (peripheral); M47.897 Other spondylosis, lumbosacral region; Z79.899 Other long term (current) drug therapy
CPT/HCPCS: 36415; 80053; 85025

== ENCOUNTER → 2019-10-22 09:25 | Outpatient (CLI) | payer MEDICARE, SELFPAY ==
[2019-10-22 10:59] LABS: ALB/GLOB Ratio 1.1 RATIO (0.9-2.4); AST(SGOT) 35 U/L (15-37); Alanine Aminotransfer ALT/SGPT 37 U/L (13-56); Albumin, Serum 3.4 g/dL (3.2-5.0); Alkaline Phosphatase 83 U/L (45-117); Anion Gap 6 (5-15); BUN 23 mg/dL (7-18); BUN/Creat Ratio 25.4 RATIO (10-20); Calcium,Total 8.8 mg/dL (8.5-10.1); Chloride 107 mmol/L (98-107); Creatinine, Serum 0.91 mg/dL (0.55-1.02); EST Glomerular Filtration Rate 63 mL/min (>60); Est Glom Filt Rate - Afr Amer 76 mL/min (>60); Globulin 3.1 g/dL (2.2-4.2); Glucose 69 mg/dL (74-106); Potassium 3.8 mmol/L (3.5-5.1); Protein, Total 6.5 g/dL (6.4-8.2); Sodium Level 140 mmol/L (136-145)
== END ==
PROVIDERS: PCP Internal Medicine; Referring Provider Internal Medicine Rheumatology; Visit Provider Internal Medicine Rheumatology
DX: M06.4 Inflammatory polyarthropathy (principal); M35.00 Sjogren syndrome, unspecified; M15.9 Polyosteoarthritis, unspecified; M18.0 Bilateral primary osteoarthritis of first carpometacarpal joints; M16.0 Bilateral primary osteoarthritis of hip; L30.9 Dermatitis, unspecified; M81.0 Age-related osteoporosis without current pathological fracture; H35.30 Unspecified macular degeneration; I10 Essential (primary) hypertension; K57.90 Diverticulosis of intestine, part unspecified, without perforation or abscess without bleeding; I87.2 Venous insufficiency (chronic) (peripheral); M47.897 Other spondylosis, lumbosacral region; Z79.899 Other long term (current) drug therapy
CPT/HCPCS: 36415; 80053

== ENCOUNTER → 2019-11-20 10:41 | Outpatient (CLI) | payer MEDICARE, SELFPAY ==
[2019-11-20 12:53] LABS: Vitamin D,25 Hydroxy 56.8 ng/mL
[2019-11-20 12:57] LABS: ALB/GLOB Ratio 1.2 RATIO (0.9-2.4); AST(SGOT) 41 U/L (15-37); Alanine Aminotransfer ALT/SGPT 52 U/L (13-56); Albumin, Serum 3.4 g/dL (3.2-5.0); Alkaline Phosphatase 74 U/L (45-117); Anion Gap 6 (5-15); BUN 24 mg/dL (7-18); BUN/Creat Ratio 25.4 RATIO (10-20); Calcium,Total 8.3 mg/dL (8.5-10.1); Chloride 107 mmol/L (98-107); Creatinine, Serum 0.94 mg/dL (0.55-1.02); EST Glomerular Filtration Rate 60 mL/min (>60); Est Glom Filt Rate - Afr Amer 72 mL/min (>60); Globulin 2.8 g/dL (2.2-4.2); Glucose 88 mg/dL (74-106); Potassium 4.2 mmol/L (3.5-5.1); Protein, Total 6.2 g/dL (6.4-8.2); Sodium Level 141 mmol/L (136-145); Thyroid Stim Hormone (TSH) 2.85 uIU/mL (0.358-3.74)
== END ==
PROVIDERS: PCP Internal Medicine; Referring Provider Internal Medicine Endocrinology, Diabetes & Metabolism; Visit Provider Internal Medicine Endocrinology, Diabetes & Metabolism
DX: E03.8 Other specified hypothyroidism (principal); E55.9 Vitamin D deficiency, unspecified; M85.9 Disorder of bone density and structure, unspecified
CPT/HCPCS: 36415; 80053; 82306; 84443

== ENCOUNTER → 2019-12-22 11:07 | Outpatient (CLI) | payer MEDICARE, SELFPAY ==
[2019-12-22 11:26] LABS: Absolute Lymphocyte Count 1.06 X10^3/uL (0.83-4.51); Absolute Neutrophil Count 3.1 X10^3/uL (2.0-7.7); Basophil# 0.01 X10^3/uL; Basophil% 0.2 % (0-1); Eosinophil# 0.12 X10^3/uL; Eosinophils% 2.5 % (0-5); Hematocrit 36.5 % (37-47); Hemoglobin 12.3 g/dL (12.0-15.0); Lymphocyte # 1.06 X10^3/ul (4.0); Lymphocyte % 22.2 % (19-41); Mean Corp Hgb Conc 33.7 g/dL (32-36); Mean Corpuscular Hgb 33.7 pg (27.0-32.0); Mean Platelet Vol. 10.6 fl (6.2-12.0); Monocyte# 0.45 X10^3/uL; Monocyte% 9.4 % (0-10); NRBC Flagged by Analyzer 0 % (0-5); Neutrophil # 3.12 X10^3/uL (2.7-7.7); Neutrophil % 65.5 % (47-70); Platelet Count 236 K/mm3 (150-450); RBC Distribution Width CV 14.1 % (11.6-14.6); RBC Distribution Width SD 50.4 fl (35.1-43.9); Red Blood Count 3.65 M/mm3 (4.2-5.4); White Blood Count 4.8 K/mm3 (4.4-11.0)
[2019-12-22 11:59] LABS: ALB/GLOB Ratio 1.2 RATIO (0.9-2.4); AST(SGOT) 35 U/L (15-37); Alanine Aminotransfer ALT/SGPT 37 U/L (13-56); Albumin, Serum 3.5 g/dL (3.2-5.0); Alkaline Phosphatase 90 U/L (45-117); Anion Gap 4 (5-15); BUN 21 mg/dL (7-18); BUN/Creat Ratio 19.1 RATIO (10-20); Calcium,Total 8.5 mg/dL (8.5-10.1); Chloride 107 mmol/L (98-107); EST Glomerular Filtration Rate 50 mL/min (>60); Est Glom Filt Rate - Afr Amer 61 mL/min (>60); Glucose 91 mg/dL (74-106); Potassium 4.2 mmol/L (3.5-5.1); Protein, Total 6.5 g/dL (6.4-8.2); Sodium Level 140 mmol/L (136-145)
== END ==
PROVIDERS: PCP Internal Medicine; Referring Provider Internal Medicine Rheumatology; Visit Provider Internal Medicine Rheumatology
DX: M06.4 Inflammatory polyarthropathy (principal); E03.8 Other specified hypothyroidism; M35.00 Sjogren syndrome, unspecified; M18.0 Bilateral primary osteoarthritis of first carpometacarpal joints; M16.0 Bilateral primary osteoarthritis of hip; L30.9 Dermatitis, unspecified; H35.30 Unspecified macular degeneration; I10 Essential (primary) hypertension; K57.90 Diverticulosis of intestine, part unspecified, without perforation or abscess without bleeding; I87.2 Venous insufficiency (chronic) (peripheral); M47.897 Other spondylosis, lumbosacral region; Z79.899 Other long term (current) drug therapy
CPT/HCPCS: 36415; 80053; 85025

== ENCOUNTER → 2020-02-25 10:09 | Outpatient (CLI) | payer MEDICARE, SELFPAY ==
[2020-02-25 11:10] LABS: Absolute Lymphocyte Count 1.17 X10^3/uL (0.83-4.51); Absolute Neutrophil Count 3.3 X10^3/uL (2.0-7.7); Basophil# 0.02 X10^3/uL; Basophil% 0.4 % (0-1); Eosinophil# 0.11 X10^3/uL; Eosinophils% 2.2 % (0-5); Hematocrit 37.9 % (37-47); Hemoglobin 12.4 g/dL (12.0-15.0); Lymphocyte # 1.17 X10^3/ul (4.0); Lymphocyte % 23.1 % (19-41); Mean Corp Hgb Conc 32.7 g/dL (32-36); Mean Corpuscular Hgb 33.7 pg (27.0-32.0); Mean Platelet Vol. 10.7 fl (6.2-12.0); Monocyte% 7.9 % (0-10); NRBC Flagged by Analyzer 0 % (0-5); Neutrophil # 3.34 X10^3/uL (2.7-7.7); Platelet Count 259 K/mm3 (150-450); RBC Distribution Width CV 13.9 % (11.6-14.6); RBC Distribution Width SD 52.1 fl (35.1-43.9); Red Blood Count 3.68 M/mm3 (4.2-5.4); White Blood Count 5.1 K/mm3 (4.4-11.0)
[2020-02-25 11:57] LABS: Albumin, Serum 3.5 g/dL (3.2-5.0); BUN 20 mg/dL (7-18); BUN/Creat Ratio 21.9 RATIO (10-20); Creatinine, Serum 0.92 mg/dL (0.55-1.02); EST Glomerular Filtration Rate 62 mL/min (>60); Est Glom Filt Rate - Afr Amer 75 mL/min (>60); Glucose 78 mg/dL (74-106); Protein, Total 6.8 g/dL (6.4-8.2)
[2020-02-25 11:58] LABS: ALB/GLOB Ratio 1.1 RATIO (0.9-2.4); AST(SGOT) 32 U/L (15-37); Alanine Aminotransfer ALT/SGPT 37 U/L (13-56); Alkaline Phosphatase 78 U/L (45-117); Anion Gap 6 (5-15); Calcium,Total 8.7 mg/dL (8.5-10.1); Chloride 107 mmol/L (98-107); Globulin 3.3 g/dL (2.2-4.2); Potassium 4.2 mmol/L (3.5-5.1); Sodium Level 139 mmol/L (136-145)
== END ==
PROVIDERS: PCP Internal Medicine; Referring Provider Internal Medicine Rheumatology; Visit Provider Internal Medicine Rheumatology
DX: M06.4 Inflammatory polyarthropathy (principal); M35.00 Sjogren syndrome, unspecified; M18.0 Bilateral primary osteoarthritis of first carpometacarpal joints; M16.0 Bilateral primary osteoarthritis of hip; L30.9 Dermatitis, unspecified; M81.0 Age-related osteoporosis without current pathological fracture; H35.30 Unspecified macular degeneration; I10 Essential (primary) hypertension; K57.90 Diverticulosis of intestine, part unspecified, without perforation or abscess without bleeding; I87.2 Venous insufficiency (chronic) (peripheral); M47.897 Other spondylosis, lumbosacral region; Z79.899 Other long term (current) drug therapy
CPT/HCPCS: 36415; 80053; 85025

== ENCOUNTER → 2021-02-10 09:12 | Outpatient (CLI) | payer MEDICARE, SELFPAY ==
[2021-02-10 12:57] LABS: T4 Free Direct 1.09 ng/dL (0.76-1.46); Thyroid Stim Hormone (TSH) 2.52 uIU/mL (0.358-3.74)
[2021-02-11 10:17] LABS: Thyroid Peroxidase AB < 8 IU/mL (0-34)
== END ==
PROVIDERS: PCP Internal Medicine; Referring Provider Internal Medicine Endocrinology, Diabetes & Metabolism; Visit Provider Internal Medicine Endocrinology, Diabetes & Metabolism
DX: I10 Essential (primary) hypertension (principal); E04.2 Nontoxic multinodular goiter
CPT/HCPCS: 36415; 84439; 84443; 86376

== ENCOUNTER → 2021-02-16 10:02 | Outpatient (CLI) | payer MEDICARE, SELFPAY ==
--- NOTE | 2021-02-16 10:03 | US_ITS ---
STUDY: THYROID ULTRASOUND REASON FOR EXAM: Female, 86 years old. Abnormal thyroid function tests TECHNIQUE: Ultrasound evaluation of the thyroid was performed with real-time and static sterling-scale imaging. COMPARISON: None. FINDINGS: RIGHT LOBE: The right lobe of the thyroid gland measures 4.3 x 1.4 x 1.8 cm. There is a homogeneous echotexture. There are 2 separate solid hypoechoic nodules, larger measures 1.7 x 1.2 x 1.5 cm, smaller 1.0 x 0.9 x 0.9 cm. There is a solid/cystic 0.3 cm nodule. LEFT LOBE: The left lobe of the thyroid gland measures 4.8 x 1.4 x 2.6 cm. There is a homogeneous echotexture. There are 3 solid nodules, largest measures 1.6 x 1.1 x 0.8 cm cm, smallest measures 0.7 x 0.6 x 0.6 cm. There is a 2.0 cm solid/cystic nodule. ISTHMUS: The isthmus measures 0.2 cm. The regional lymph nodes are normal. US/Thyroid IMPRESSION: Borderline enlarged thyroid with bilateral solid nodules. Since sonography cannot distinguish between benign and aggressive nodules in prior studies are available for comparison, further evaluation with thyroid uptake study recommended. If any of the nodules should demonstrate suspicious uptake characteristics, biopsy would be recommended, if not a 6 month follow-up ultrasound would be recommended to ensure resolution TI rads: TR 4 Electronically Signed: Lonnie Braxton MD at 12:17 EDT , Service support ,
== END ==
PROVIDERS: PCP Internal Medicine; Referring Provider Internal Medicine Endocrinology, Diabetes & Metabolism; Visit Provider Internal Medicine Endocrinology, Diabetes & Metabolism
DX: E04.2 Nontoxic multinodular goiter (principal)
CPT/HCPCS: 76536

== ENCOUNTER 2021-05-07 13:14 | Emergency (ER) | payer MEDICARE, SELFPAY ==
[2021-05-07 13:14] VITALS: BP 138/74; PULSE 75; RESP 16; TEMP 36.4; O2SAT 98; BMI 21.2
--- NOTE | 2021-05-07 13:41 | CT_ITS ---
We are attempting to reach an attending provider to discuss findings. An addendum with communication details will be sent when the communication is complete. STUDY: CT CERVICAL SPINE WITHOUT CONTRAST REASON FOR EXAM: Female, 86 years old patient with neck injury after unspecified trauma. RADIATION DOSAGE (If Supplied By Facility): CTDIvol = ( 12.02 ) mGy, DLP = ( 219.88 ) mGycm TECHNIQUE: High resolution transaxial imaging was performed without contrast material. Sagittal and coronal images were reconstructed. Individualized dose optimization techniques were used for this CT. COMPARISON: Prior comparison studies are not available for review at this time. FINDINGS: Normal craniovertebral junction. Normal anterior atlantoaxial articulation. Normal odontoid process. There is an exaggerated cervical lordosis. There is acute comminuted fracture of C1 involving both anterior and posterior region of the ring. There is mild anterolisthesis at C4-5 and C5-6. C2-3: Normal endplates. Normal disc height and morphology. Normal central canal. There is mild narrowing of bilateral intervertebral neuroforamina. There is bilateral facet joint arthropathy. C3-4: There is narrowing of the disc space. There is a severe bilateral neural foraminal narrowing, left greater than right with uncovertebral and facet arthropathy. There is no central canal stenosis. C4-5: There is mild uncovering of the disc secondary to anterolisthesis. There is severe bilateral neural foraminal narrowing with bilateral facet joint arthropathy. There is no central acquired canal stenosis. C5-6: There is mild uncovering of the disc secondary to anterolisthesis. There is narrowing of the disc space. There is severe bilateral neural foraminal narrowing with uncovertebral and facet joint arthropathy. There is no acquired central canal stenosis. C6-7: There is severe narrowing of the disc space with small endplate osteophytes. There is moderate bilateral neural foraminal narrowing with uncovertebral joint hypertrophy. There is no central acquired canal stenosis. C7-T1: Normal endplates. Normal disc height and morphology. Normal central canal and intervertebral neuroforamina. There is atherosclerotic calcification of the carotid bulbs. CT/Spine Cervical without Contras IMPRESSION: 1. Acute comminuted fracture of C1. 2. 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 Electronically Signed: Ellie Roy MD at 14:36 EST , Service support ,
--- NOTE | 2021-05-07 13:41 | CT_ITS ---
STUDY: CT BRAIN WITHOUT CONTRAST REASON FOR EXAM: Female, 86 years old patient with closed head injury after recent unspecified trauma. RADIATION DOSAGE (If Supplied By Facility): CTDIvol = ( 44.99 ) mGy, DLP = ( 779.24 ) mGycm TECHNIQUE: Transaxial CT imaging of the brain was performed without administration of intravenous contrast material. Multiplanar reformations are submitted for interpretation. Individualized dose optimization techniques were used for this CT. COMPARISON: No relevant priors. FINDINGS: Normal soft tissue structures. Normal calvarium. There is mild cerebral atrophy with widening of the extra-axial spaces and ventricular dilatation. There are areas of decreased attenuation within the white matter tracts of the supratentorial brain, consistent with microvascular disease changes. Normal basal ganglia and thalami. Normal brainstem. There is mild cerebellar atrophy. There is no intracranial hemorrhage. There is mild atherosclerotic calcification of the intracranial arteries. There is a small right maxillary mucous retention cyst. There is mild mucosal thickening within the maxillary sinuses. There is some thickening of the blanco of maxillary sinuses suggesting sequela of previous inflammation or infection. CT/Brain/Head without Contrast IMPRESSION: 1. Chronic involutional changes of the brain. 2. No CT evidence of acute intracranial hemorrhage. Electronically Signed: Ellie Roy MD at 14:29 EST , Service support ,
[2021-05-07] MEDS: HYDROcodone Bitartrate/Apap 5/325 Tablet PO (14:44)
--- NOTE | 2021-05-07 14:59 | EX.ED.GENINJ ---
HPI History of Present Illness Chief Complaint: Other, Pain/Inj Narrative Narrative: Patient has severe rheumatoid arthritis. She was try to get up from under the bed fell and hit her head hyperextending her neck. She is complaining of neck pain. No neuropathy or radicular symptoms no lower extremity weakness. No other injury. [facility] Medical History Cataracts, bilateral Hives [place] (hard of hearing) Hypertension Hypothyroidism Multinodular goiter Osteopenia Rheumatoid arthritis Seasonal allergies Skin cancer Home Medications calcium carbonate-vitamin D3 [Calcium 500+D Tablet Chew] 1 ea PO DAILY 06/11/16 [History Last Taken Unknown] citalopram 10 mg PO DAILY 06/11/16 [History Last Taken Unknown] vitamins A,C,H-vlve-qbhedj [Preservision Areds Softgel] 2 ea PO DAILY 06/11/16 [History Last Taken Unknown] amlodipine 2.5 mg tablet 5 mg PO DAILY tab 12/03/20 [History Last Taken Unknown] cholecalciferol (vitamin D3) 50 mcg (2,000 unit) capsule 50 mcg PO DAILY 12/03/20 [History Last Taken Unknown] losartan 100 mg tablet 100 mg PO DAILY 12/03/20 [History Last Taken Unknown] methotrexate 2.5 mg/mL oral solution PO QWEEK ml 12/03/20 [History Last Taken Unknown] levothyroxine 50 mcg tablet 50 mcg PO .COMPLEX #102 tab 04/14/21 [Rx Last Taken Unknown] Allergy/AdvReac Type Severity Reaction Status Date / Time pseudoephedrine Allergy Hives Verified 05/07/21 13:17 [From [facility]] Family History Grandmother Arthritis Mother Blood clot in vein Breast cancer Osteoporosis Skin cancer Sister Blood clot in vein Breast cancer Skin cancer Father Hypertension Other Cancer Surgical History H/O repair of rotator cuff Social History Smoking Status: Never smoker alcohol intake: current Alcohol type: wine substance use type: does not use frequency: other details: 3x/month ROS ROS ED ROS Narrative Social: Noncontributory Medications: Reviewed Past medical history: Reviewed Review of systems General: Head injury but no loss of consciousness HEENT: No facial injury Neck: Neck pain as in HPI Cardiovascular: Patient denies any chest pain or palpitations Chest wall: No chest wall contusions Respiratory: There is no shortness of breath GI: There is no nausea vomiting diarrhea or abdominal pain, no abdominal wall contusions Skin: No lacerations or abrasions Neurological: Patient has no memory loss, confusion, or any focal weakness Psychiatric: No recent behavioral changes Back: No back pain, no problems with ambulation Musculoskeletal: No extremity injury All other systems are reviewed and normal EXAM Physical Exam Narrative Exam Narrative: Physical exam Vitals reviewed General: Does not appear in significant distress, no obvious injuries HEENT: No facial injury Head: No signs of head injury Eyes: Extraocular movements intact Neck: C1-C3 tenderness. Heart: Regular rate normal pulses Chest wall: No chest wall pain Lungs clear lungs bilaterally with normal inspiration and expiration without tachypnea GI: Abdomen is soft and nontender there is no mass no guarding no abdominal wall contusion : Stable pelvis Musculoskeletal: Moves all extremities without any signs of trauma Skin: No abrasions or laceration Neurological: Patient is alert and oriented with no focal deficits Const Vital Signs: 05/07/21 13:14 05/07/21 13:41 Temperature 97.6 F L Temperature Source Temporal Pulse Rate 75 Respiratory Rate 16 Respiratory Effort Normal Non-Labored Respiratory Pattern Normal Blood Pressure 138/74 H Blood Pressure Mean 95 Pulse Ox 98 Oxygen Delivery Method Room Air MDM MDM MDM Narrative Medical decision making narrative: Patient is found to have a C1 comminuted fracture. She is neurologically intact. She has a c-collar in. I called [facility] for trauma transfer. Patient will be transferred in stable condition Radiography Diagnostic Testing: Clinical Impression(s) from Imaging Studies Brain CT 05/07/21 13:41 IMPRESSION: 1. Chronic involutional changes of the brain. 2. No CT evidence of acute intracranial hemorrhage. Electronically Signed: Ellie Roy MD at 14:29 EST , Service support , Cervical Spine CT 05/07/21 13:41 IMPRESSION: 1. Acute comminuted fracture of C1. 2. 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 Electronically Signed: Ellie Roy MD at 14:36 EST , Service support , ADDENDUM: 05/07/21 1447 IMPRESSION: 1. Acute comminuted fracture of C1. 2. 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 N.B. : Dr. Anila MD, confirmed on 05/07/2021 14:40:42 (ET) that the referring physician received the results and does not require a verbal communication. Electronically Signed: Ellie Roy MD at 14:36 EST , Service support , Discharge Plan Triage Chief Complaint: Other, Pain/Inj ED Provider: Rohan High Dx/Rx/DC Orders Clinical Impression: C1 cervical fracture, Head injury Prescriptions: No Action cholecalciferol (vitamin D3) 50 mcg (2,000 unit) capsule 50 mcg PO DAILY RF: 0 losartan 100 mg tablet 100 mg PO DAILY RF: 0 methotrexate 2.5 mg/mL solution PO QWEEK RF: 0 citalopram 10 MG tablet 10 mg PO DAILY RF: 0 calcium carbonate-vitamin D3 [Calcium 500 + D] 1 EACH tablet,chewable 1 ea PO DAILY RF: 0 PreserVision AREDS 1 EACH capsule 2 ea PO DAILY RF: 0 amlodipine [Norvasc] 2.5 mg tablet 5 mg PO DAILY RF: 0 levothyroxine 50 mcg tablet 50 mcg PO .COMPLEX Qty: 102 RF: 3 Primary Care Provider: Nina Carpenter Referrals: Nina Carpenter MD [Primary Care Provider] - Disposition Disposition: Transfer to Another Type [facility]
[2021-05-07 15:05] VITALS: BP 192/83; PULSE 82; RESP 16; O2SAT 96
[2021-05-07] MEDS: Morphine 2 MG/ML Syringe IV (16:15)
[2021-05-07] MEDS: Ondansetron 4 MG/2 ML Vial IV (16:15)
[2021-05-07 16:30] VITALS: BP 187/76; PULSE 80; RESP 16; O2SAT 96
== END 2021-05-07 16:25 | disposition other institution (70) ==
PROVIDERS: Emergency Provider Emergency Medicine; PCP Internal Medicine
DX: S12.000A Unspecified displaced fracture of first cervical vertebra, initial encounter for closed fracture (principal); M06.9 Rheumatoid arthritis, unspecified; W19.XXXA Unspecified fall, initial encounter
CPT/HCPCS: 70450; 72125; 96374; 96375; 99285; A4216; J2405

== ENCOUNTER → 2022-02-10 | Outpatient (CLI) | payer MEDICARE, SELFPAY ==
--- NOTE | 2022-02-10 13:00 | US_ITS ---
STUDY: THYROID ULTRASOUND REASON FOR EXAM: Female, 87 years old. nodules, compare 2020 TECHNIQUE: Ultrasound evaluation of the thyroid was performed with real-time and static sterling-scale imaging. COMPARISON: 02/16/2021 FINDINGS: RIGHT LOBE: The right lobe of the thyroid gland measures 3.6 x 1.4 x 0.8 cm. There is a heterogeneous echotexture. There are 3 nodules in the right thyroid lobe measuring respectively: Nodule #1 measures 1.5 x 1.3 x 1.2 cm. Previously measured 1.7 x 1.2 x 1.5 . Ti-RADS category 2 benign. Nodule #2 measures 0.8 x 1 x 0.8 cm., Previously measured 1 x 0.9 x 0.9 cm. Ti-RADS category 2 benign. Nodule #2 measures 0.7 x 0.5 x 0.5 cm. Previously measured 0.3 x 0.3 x 0.3 cm Ti-RADS category 2 benign. LEFT LOBE: The left lobe of the thyroid gland measures 3.6 x 1.1 x 1.8 cm. There is a heterogeneous echotexture. There are 3 nodules in the left thyroid lobe measuring respectively: Nodule #1 measures 1.5 x 1.2 x 0.9 cm. Previously measured 1.6 x 1.1 x 0.8 cm . Ti-RADS Category 2 benign. Nodule #2 measures 1.2 x 1 x 0.8 cm. Previously measured 2 x 1.5 x 1.5 cm. Ti-RADS category 2 benign. Nodule #2 measures 0.9 x 0.7 x 0.6 cm. Previously measured 0.9 x 0.9 x 0.7 cm. Ti-RADS category 2 benign. ISTHMUS: The isthmus measures 2 . The regional lymph nodes are normal. US/Thyroid IMPRESSION: Bilateral benign-appearing thyroid nodules have not significantly changed since the previous study. Electronically Signed: Osorio Rodney MD at 7:45 EDT ,
== END | disposition home or self-care (01) ==
PROVIDERS: PCP Internal Medicine; Referring Provider Internal Medicine Endocrinology, Diabetes & Metabolism; Visit Provider Internal Medicine Endocrinology, Diabetes & Metabolism
DX: E04.2 Nontoxic multinodular goiter (principal)
CPT/HCPCS: 76536

== ENCOUNTER → 2022-08-04 | Outpatient (CLI) | payer MEDICARE, SELFPAY ==
[2022-08-04 15:04] LABS: T4 Free Direct 1.17 ng/dL (0.76-1.46); Thyroid Stim Hormone (TSH) 2.44 uIU/mL (0.358-3.74)
[2022-08-04 15:11] LABS: Vitamin D,25 Hydroxy 55.7 ng/mL
== END | disposition home or self-care (01) ==
PROVIDERS: PCP Internal Medicine; Referring Provider Internal Medicine Endocrinology, Diabetes & Metabolism; Visit Provider Internal Medicine Endocrinology, Diabetes & Metabolism
DX: E03.9 Hypothyroidism, unspecified (principal); E55.9 Vitamin D deficiency, unspecified
CPT/HCPCS: 36415; 82306; 84439; 84443

== ENCOUNTER → 2022-08-10 | Outpatient (CLI) | payer MEDICARE, SELFPAY ==
--- NOTE | 2022-08-10 09:03 | BD_ITS ---
STUDY: DUAL ENERGY X-RAY ABSORPTIOMETRY / DXA REASON FOR EXAM: Female, 87 years old. Osteopenia TECHNIQUE: Bone Mineral Density (BMD) measurements of lumbar spine and bilateral hips were obtained. COMPARISON: None. FINDINGS: Lumbar Spine (L1-L4): g/cm2 (0.893) / T-score (-1.1) / Z-score (1.7) Findings are suggestive of osteopenia with a low fracture risk. Left Femur Total: g/cm2 (0.730) / T-score (-1.7) / Z-score (0.6) Left Femoral Neck: g/cm2 (0.670) / T-score (-1.7) / Z-score (0.9) Right Femur Total: g/cm2 (0.712) / T-score (-1.9) / Z-score (0.5) Right Femoral Neck: g/cm2 (0.714) / T-score (-1.2) / Z-score (1.3) BD/Dexa Bone Density Study IMPRESSION: The patient is considered osteopenic as outlined below according to World [employer] Organization (WHO) criteria with a moderate fracture risk. Reference Information: The T-score is the number of standard deviations above or below the standard which is normal for young adults at their peak bone mineral density. The World Health Organization (WHO) interprets the T-scores as follows: Above -1 Normal bone density Between -1 and -2.5 Osteopenia Equal to / or below -2.5 Osteoporosis As a practical clinical guideline, osteopenia may be graded as follows: Mild -1 through -1.5 Moderate -1.6 through -2.0 Severe -2.1 through -2.4 The Z-score is the number of standard deviations above or below age-matched controls. A Z-score of less than -1.5 would be considered abnormal. References: 1. NIH Osteoporosis and Related Bone Diseases www osteo.org 2. International Society for Clinical Densitometry www iscd.org 3. National Osteoporosis Foundation www nof.org Electronically Signed: Chad Nicholas MD at 10:21 EDT ,
== END | disposition home or self-care (01) ==
LOC: OPBD 09:01
PROVIDERS: PCP Internal Medicine; Visit Provider Internal Medicine Endocrinology, Diabetes & Metabolism
DX: M85.89 Other specified disorders of bone density and structure, multiple sites (principal)
CPT/HCPCS: 77080

== ENCOUNTER → 2024-02-26 | Outpatient (CLI) | payer MEDICARE, SELFPAY ==
[2024-02-26 12:47] LABS: Absolute Lymphocyte Count 0.78 X10^3/uL (0.83-4.51); Absolute Neutrophil Count 4.6 X10^3/uL (2.0-7.7); Basophil# 0.02 X10^3/uL; Basophil% 0.3 % (0-1); Eosinophil# 0.09 X10^3/uL; Eosinophils% 1.5 % (0-5); Hematocrit 35.8 % (37-47); Hemoglobin 11.7 g/dL (12.0-15.0); Lymphocyte # 0.78 X10^3/ul (0.83-4.51); Lymphocyte % 13.4 % (19-41); Mean Corp Hgb Conc 32.7 g/dL (32-36); Mean Corpuscular Hgb 33.2 pg (27.0-32.0); Mean Corpuscular Volume 101.7 fL (81-99); Mean Platelet Vol. 10.7 fl (6.2-12.0); Monocyte# 0.37 X10^3/uL; Monocyte% 6.3 % (0-10); NRBC Flagged by Analyzer 0 % (0-5); Neutrophil # 4.55 X10^3/uL (2.7-7.7); Neutrophil % 78.2 % (47-70); Platelet Count 299 K/mm3 (150-450); RBC Distribution Width CV 14.5 % (11.6-14.6); RBC Distribution Width SD 53.4 fl (35.1-43.9); Red Blood Count 3.52 M/mm3 (4.2-5.4); White Blood Count 5.8 K/mm3 (4.4-11.0)
[2024-02-26 13:27] LABS: AST(SGOT) 28 U/L (15-37); Alanine Aminotransfer ALT/SGPT 25 U/L (13-56); Albumin, Serum 3.2 g/dL (3.2-5.0); Alkaline Phosphatase 96 U/L (45-117); Anion Gap 6 (5-15); BUN 27 mg/dL (7-18); BUN/Creat Ratio 29.1 RATIO (10-20); Calcium,Total 8.7 mg/dL (8.5-10.1); Chloride 111 mmol/L (98-107); Creatinine, Serum 0.93 mg/dL (0.55-1.02); EST Glomerular Filtration Rate 60 mL/min (>60); Est Glom Filt Rate - Afr Amer 73 mL/min (>60); Globulin 3.2 g/dL (2.2-4.2); Glucose 97 mg/dL (74-106); Potassium 4.1 mmol/L (3.5-5.1); Protein, Total 6.4 g/dL (6.4-8.2); Sodium Level 142 mmol/L (136-145)
== END | disposition home or self-care (01) ==
LOC: MTLAB 09:49
PROVIDERS: PCP Internal Medicine; Referring Provider Internal Medicine Rheumatology; Visit Provider Internal Medicine Rheumatology
DX: M06.4 Inflammatory polyarthropathy (principal); Z79.899 Other long term (current) drug therapy; M35.00 Sjogren syndrome, unspecified; M19.041 Primary osteoarthritis, right hand; M18.0 Bilateral primary osteoarthritis of first carpometacarpal joints; M16.0 Bilateral primary osteoarthritis of hip
CPT/HCPCS: 36415; 80053; 85025

== ENCOUNTER → 2024-05-27 | Outpatient (CLI) | payer MEDICARE, SELFPAY ==
[2024-05-27 15:31] LABS: T4 Free Direct 1.17 ng/dL (0.76-1.46)
[2024-05-27 17:39] LABS: Vitamin D,25 Hydroxy 38.2 ng/mL
[2024-05-28 03:16] LABS: ALB/GLOB Ratio 1.2 RATIO (0.9-2.4); AST(SGOT) 30 U/L (15-37); Alanine Aminotransfer ALT/SGPT 27 U/L (13-56); Albumin, Serum 3.5 g/dL (3.2-5.0); Alkaline Phosphatase 89 U/L (45-117); Anion Gap 5 (5-15); BUN 24 mg/dL (7-18); BUN/Creat Ratio 26.5 RATIO (10-20); Calcium,Total 8.8 mg/dL (8.5-10.1); Chloride 108 mmol/L (98-107); EST Glomerular Filtration Rate 62 mL/min (>60); Est Glom Filt Rate - Afr Amer 75 mL/min (>60); Globulin 2.8 g/dL (2.2-4.2); Glucose 79 mg/dL (74-106); Potassium 3.9 mmol/L (3.5-5.1); Protein, Total 6.3 g/dL (6.4-8.2); Sodium Level 140 mmol/L (136-145)
== END | disposition home or self-care (01) ==
LOC: MTLAB 11:26
PROVIDERS: Internal Medicine Endocrinology, Diabetes & Metabolism; PCP Internal Medicine; Referring Provider Internal Medicine Rheumatology; Visit Provider Internal Medicine Rheumatology
DX: M06.4 Inflammatory polyarthropathy (principal); Z79.899 Other long term (current) drug therapy; M35.00 Sjogren syndrome, unspecified; M19.041 Primary osteoarthritis, right hand; E55.9 Vitamin D deficiency, unspecified; E03.9 Hypothyroidism, unspecified
CPT/HCPCS: 36415; 80053; 82306; 84439; 84443

== ENCOUNTER → 2024-05-28 | Outpatient (CLI) | payer MEDICARE, SELFPAY ==
[2024-05-28 17:25] LABS: Absolute Lymphocyte Count 1.23 X10^3/uL (0.83-4.51); Absolute Neutrophil Count 4.4 X10^3/uL (2.0-7.7); Basophil# 0.03 X10^3/uL; Basophil% 0.5 % (0-1); Eosinophil# 0.06 X10^3/uL; Hematocrit 36.2 % (37-47); Hemoglobin 11.9 g/dL (12.0-15.0); Lymphocyte # 1.23 X10^3/ul (0.83-4.51); Lymphocyte % 20.3 % (19-41); Mean Corp Hgb Conc 32.9 g/dL (32-36); Mean Corpuscular Hgb 33.1 pg (27.0-32.0); Mean Corpuscular Volume 100.6 fL (81-99); Mean Platelet Vol. 10.3 fl (6.2-12.0); Monocyte# 0.37 X10^3/uL; Monocyte% 6.1 % (0-10); NRBC Flagged by Analyzer 0 % (0-5); Neutrophil # 4.35 X10^3/uL (2.7-7.7); Neutrophil % 71.9 % (47-70); Platelet Count 292 K/mm3 (150-450); RBC Distribution Width CV 14.5 % (11.6-14.6); White Blood Count 6.1 K/mm3 (4.4-11.0)
== END | disposition home or self-care (01) ==
LOC: MTLAB 15:20
PROVIDERS: PCP Internal Medicine; Referring Provider Internal Medicine Rheumatology; Visit Provider Internal Medicine Rheumatology
DX: M06.4 Inflammatory polyarthropathy (principal); Z79.899 Other long term (current) drug therapy; M19.041 Primary osteoarthritis, right hand; M18.0 Bilateral primary osteoarthritis of first carpometacarpal joints; M16.0 Bilateral primary osteoarthritis of hip; M19.042 Primary osteoarthritis, left hand; M35.00 Sjogren syndrome, unspecified
CPT/HCPCS: 36415; 85025

== ENCOUNTER → 2024-08-15 | Outpatient (CLI) | payer MEDICARE, SELFPAY ==
[2024-08-15 12:16] LABS: Absolute Lymphocyte Count 0.98 X10^3/uL (0.83-4.51); Absolute Neutrophil Count 5.1 X10^3/uL (2.0-7.7); Basophil# 0.02 X10^3/uL; Basophil% 0.3 % (0-1); Eosinophil# 0.15 X10^3/uL; Eosinophils% 2.2 % (0-5); Hematocrit 38.4 % (37-47); Hemoglobin 12.7 g/dL (12.0-15.0); Lymphocyte # 0.98 X10^3/ul (0.83-4.51); Lymphocyte % 14.5 % (19-41); Mean Corp Hgb Conc 33.1 g/dL (32-36); Mean Corpuscular Hgb 33.4 pg (27.0-32.0); Mean Corpuscular Volume 101.1 fL (81-99); Mean Platelet Vol. 10.5 fl (6.2-12.0); Monocyte# 0.47 X10^3/uL; NRBC Flagged by Analyzer 0 % (0-5); Neutrophil % 75.7 % (47-70); Platelet Count 304 K/mm3 (150-450); RBC Distribution Width CV 14.4 % (11.6-14.6); RBC Distribution Width SD 51.8 fl (35.1-43.9); White Blood Count 6.7 K/mm3 (4.4-11.0)
[2024-08-15 12:43] LABS: ALB/GLOB Ratio 1.6 RATIO (0.9-2.4); AST(SGOT) 28 U/L (<=31); Alanine Aminotransfer ALT/SGPT 15 U/L (<=34); Alkaline Phosphatase 104 U/L (35-104); Anion Gap 10 (5-15); BUN 30 mg/dL (4-19); BUN/Creat Ratio 29.9 RATIO (10-20); Calcium,Total 9.5 mg/dL (7.6-11.0); Carbon Dioxide 23.7 mmol/L (21.0-32.0); Chloride 107 mmol/L (98-108); EST Glomerular Filtration Rate 54 (>60); Globulin 2.5 g/dL (2.2-4.2); Glucose 97 mg/dL (70-99); Potassium 4.6 mmol/L (3.3-5.1); Protein, Total 6.5 g/dL (5.9-8.4); Sodium Level 141 mmol/L (133-145); Total Bilirubin 0.26 mg/dL (0.00-1.30)
== END | disposition home or self-care (01) ==
LOC: MTLAB 10:54
PROVIDERS: PCP Internal Medicine; Referring Provider Internal Medicine Rheumatology; Visit Provider Internal Medicine Rheumatology
DX: M06.4 Inflammatory polyarthropathy (principal); Z79.899 Other long term (current) drug therapy; M35.00 Sjogren syndrome, unspecified; M19.041 Primary osteoarthritis, right hand; M18.0 Bilateral primary osteoarthritis of first carpometacarpal joints; M16.0 Bilateral primary osteoarthritis of hip
CPT/HCPCS: 36415; 80053; 85025

== ENCOUNTER → 2024-11-11 | Outpatient (CLI) | payer MEDICARE, SELFPAY ==
[2024-11-11 18:19] LABS: AST(SGOT) 38 U/L (<=31); Alanine Aminotransfer ALT/SGPT 22 U/L (<=34); Albumin, Serum 4.0 g/dL (3.4-4.8); Alkaline Phosphatase 111 U/L (35-104); Anion Gap 11 (5-15); BUN 31 mg/dL (4-19); BUN/Creat Ratio 32.6 RATIO (10-20); Calcium,Total 9.1 mg/dL (7.6-11.0); Carbon Dioxide 21.9 mmol/L (21.0-32.0); Chloride 107 mmol/L (98-108); Globulin 2.1 g/dL (2.2-4.2); Glucose 90 mg/dL (70-99); Potassium 4.3 mmol/L (3.3-5.1)
[2024-11-11 18:30] LABS: Hematocrit 35.9 % (37-47); Hemoglobin 12.4 g/dL (12.0-15.0); Immature Granulocytes Count 0.010 X10^3/uL (0.0-0.0); Mean Corp Hgb Conc 34.5 g/dL (32-36); Mean Corpuscular Volume 97.6 fL (81-99); Mean Platelet Vol. 11.3 fl (6.2-12.0); NRBC Flagged by Analyzer 0 % (0-5); POSITIVE MORPHOLOGY YES; Platelet Count 283 K/mm3 (150-450); RBC Distribution Width CV 14.7 % (11.6-14.6); RBC Distribution Width SD 52.4 fl (35.1-43.9); Red Blood Count 3.68 M/mm3 (4.2-5.4); White Blood Count 5.1 K/mm3 (4.4-11.0)
[2024-11-11 19:11] LABS: Differential Indicated SCAN CRITERIA MET
[2024-11-11 22:12] LABS: Differential Comment SCANNED
== END | disposition home or self-care (01) ==
LOC: MTLAB 15:55
PROVIDERS: PCP Internal Medicine; Referring Provider Internal Medicine Rheumatology; Visit Provider Internal Medicine Rheumatology
DX: M06.4 Inflammatory polyarthropathy (principal); Z79.899 Other long term (current) drug therapy; M35.00 Sjogren syndrome, unspecified
CPT/HCPCS: 36415; 80053; 85025

== ENCOUNTER → 2024-12-23 | Outpatient (CLI) | payer MEDICARE, SELFPAY ==
[2024-12-23 18:00] LABS: Hematocrit 36.2 % (37-47); Hemoglobin 12.3 g/dL (12.0-15.0); Immature Granulocytes Count 0.010 X10^3/uL (0.0-0.0); Mean Corp Hgb Conc 34.0 g/dL (32-36); Mean Corpuscular Volume 99.2 fL (81-99); Mean Platelet Vol. 11.2 fl (6.2-12.0); NRBC Flagged by Analyzer 0 % (0-5); Platelet Count 300 K/mm3 (150-450); RBC Distribution Width CV 14.6 % (11.6-14.6); RBC Distribution Width SD 52.5 fl (35.1-43.9); Red Blood Count 3.65 M/mm3 (4.2-5.4); White Blood Count 6.2 K/mm3 (4.4-11.0)
[2024-12-23 18:52] LABS: AST(SGOT) 29 U/L (<=31); Alanine Aminotransfer ALT/SGPT 17 U/L (<=34); Albumin, Serum 4.0 g/dL (3.4-4.8); Alkaline Phosphatase 86 U/L (35-104); Anion Gap 10 (5-15); BUN 24 mg/dL (4-19); BUN/Creat Ratio 19.6 RATIO (10-20); Calcium,Total 9.2 mg/dL (7.6-11.0); Carbon Dioxide 22.0 mmol/L (21.0-32.0); Chloride 107 mmol/L (98-108); Globulin 2.2 g/dL (2.2-4.2); Glucose 108 mg/dL (70-99); Potassium 4.3 mmol/L (3.3-5.1)
== END | disposition home or self-care (01) ==
LOC: MTLAB 14:24
PROVIDERS: PCP Internal Medicine; Referring Provider Internal Medicine Rheumatology; Visit Provider Internal Medicine Rheumatology
DX: M06.4 Inflammatory polyarthropathy (principal); Z79.899 Other long term (current) drug therapy; M35.00 Sjogren syndrome, unspecified
CPT/HCPCS: 36415; 80053; 85025